=== PATIENT | female | born 1930 | race Caucasian/White ===

== ENCOUNTER 2017-06-09 20:09 | Inpatient (IN) | payer MEDICARE ==
[~2017-06-09] VITALS: Ht 160 cm; Wt 54.4 kg
[2017-06-09] MEDS ORDERED: LOSA1TAB35 PO (20:25)
[2017-06-09] MEDS ORDERED: DONE10TA11 PO (20:25)
[2017-06-09] MEDS ORDERED: QUET50TA PO (20:25)
[2017-06-09] MEDS ORDERED: ATOR40TA PO (20:25)
[2017-06-09] MEDS ORDERED: LACT10SO PO (20:25)
[2017-06-09] MEDS ORDERED: MEMA28CA PO (20:25)
[2017-06-09] MEDS ORDERED: ERGO500040 PO (20:25)
[2017-06-09] MEDS ORDERED: MELA3TAB PO (20:25)
[2017-06-09] MEDS ORDERED: CYAN10009 PO (20:25)
[2017-06-09] MEDS ORDERED: ASPI81TA31 PO (20:25)
[2017-06-09] MEDS ORDERED: QUET25TA PO (20:25)
[2017-06-09] MEDS ORDERED: ACET325C PO (20:25)
[2017-06-09] MEDS ORDERED: MAGN400T6 PO (20:25)
[2017-06-09] MEDS ORDERED: LEVO75TA7 PO ×2 (20:25)
[2017-06-09] MEDS ORDERED: DIVA250T4 PO (20:25)
[2017-06-09] MEDS ORDERED: LORAZEPAM 2 MG/1 ML VIAL IM ONE (20:30)
[2017-06-09] MEDS ORDERED: LORAZEPAM 2 MG/1 ML VIAL ONE (20:41)
[2017-06-09 20:56] LABS: BASOPHILS # (AUTO) 0.1 K/uL (0.0-8.0); BASOPHILS % (AUTO) 1.1 % (0.0-2.0); EOSINOPHILS # (AUTO) 0.1 K/uL (0.0-0.7); EOSINOPHILS % (AUTO) 1.5 % (0.0-7.0); HEMATOCRIT 37.9 % (37-47); HEMOGLOBIN 12.3 G/DL (12.0-16.0); LYMPHOCYTES # (AUTO) 1.6 K/UL (0.8-4.8); LYMPHOCYTES % (AUTO) 22.3 % (20.5-51.5); MEAN CORPUSCULAR HEMOGLOBIN 29.8 UUG (27.0-31.0); MEAN CORPUSCULAR HGB CONC 32 g/dL (32.0-37.0); MONOCYTES # (AUTO) 0.7 K/UL (0.1-1.30); MONOCYTES % (AUTO) 10.1 % (0.0-11.0); NEUTROPHILS # (AUTO) 4.8 K/UL (1.8-8.9); PLATELET COUNT (AUTO) 199 K/UL (150-450); RED BLOOD CELL COUNT(AUTO) 4.12 MIL/UL (4.2-5.4); WHITE BLOOD COUNT (AUTO) 7.3 K/UL (4.0-11.2)
[2017-06-09 20:59] LABS: CARBON DIOXIDE 26 mmol/L (21-32); CHLORIDE 100 mmol/L (98-107); CREATININE 2.2 mg/dL (0.6-1.3); GLUCOSE 103 mg/dL (74-106); POTASSIUM 3.2 mmol/L (3.5-5.1); UREA NITROGEN, BLOOD 45 mg/dL (7-18)
[2017-06-09 21:05] LABS: ETHANOL < 3 MG/DL (0-0)
[2017-06-09 21:11] LABS: ALANINE AMINOTRANSFERASE 18 U/L (14-59); ALKALINE PHOSPHATASE 92 U/L (50-136); ASPARTATE AMINOTRANSFERASE 23 U/L (15-37); BILIRUBIN,DIRECT 0.1 mg/dL (0.0-0.2); BILIRUBIN,TOTAL 0.3 mg/dL (0.2-1.0)
[2017-06-09 21:30] LABS: THYROID STIMULATING HORMONE 0.111 mIU/mL (0.358-3.740)
[2017-06-09] MEDS ORDERED: hydrALAZINE HCL 25 MG TABLET PO PRN (23:00)
[2017-06-09] MEDS ORDERED: ONDANSETRON 4 MG/2 ML VIAL IV PRN (23:00)
[2017-06-09] MEDS ORDERED: Medication Not On Formulary EA (Quetiapine Fumarate (Seroquel) 50 MG) PO SCH (23:00)
--- NOTE | 2017-06-09 23:30 | NUR ---
RECEIVED PATIENT VIA GURNEY FROM ER, WITH 1:1 SITTER PRESENT AT BEDSIDE. PATIENT IS ASLEEP AND VERY LETHARGIC. PATIENT WAS MEDICATED IN ER AND WAS IN 4 POINT RESTRAINTS IN ER PRIOR TO ADMISSION TO THE FLOOR. PATIENT IS HEAVILY SLEEPING. AROUSABLE BUT FALLS BACK ASLEEP. PLACED ON TELE ORDERED, SR 60-62. VSS. NO RESP. DISTRESS NOTED. PATIENT IS ON RA SATING 97%. HEPLOCK PLACED IN RIGHT AC #20 GAUGE. PATIENT REPOSITIONED TO SIDE FOR PRESSURE RELIEF. BED ALARM ON. CALL LIGHT IN REACH. ALL NEEDS ATTENDED. WILL CONTINUE TO MONITOR AND ASSESS.
--- NOTE | 2017-06-09 23:36 | NUR ---
Pt. admitted to TELE, under care of Dr. Sanchez and Dr. Monroe Belongs List completed
[2017-06-10 00:24] VITALS: BP 103/47
[2017-06-10] MEDS: POTASSIUM CHLORIDE 20 MEQ in IV 1/2NS 1000 ML 1,000 ML IV PRN ×2 (01:03→15:47)
[2017-06-10] MEDS ORDERED: Z GUARD REMEDY PASTE 57 GM TUBE TOP PRN (02:00)
[2017-06-10 04:30] VITALS: BP 121/47
--- NOTE | 2017-06-10 05:36 | NUR ---
PATIENT ASLEEP IN BED. SITTER AT BEDSIDE. VSS. ON TELE SB 57. NO RESP. DISTRESS NOTED. BED ALARM ON. CALL LIGHT IN REACH. ALL NEEDS ATTENDED. WILL CONTINUE TO MONITOR AND ASSESS.
[2017-06-10 06:53] LABS: ALANINE AMINOTRANSFERASE 19 U/L (14-59); ALKALINE PHOSPHATASE 81 U/L (50-136); ASPARTATE AMINOTRANSFERASE 22 U/L (15-37); BILIRUBIN,TOTAL 0.3 mg/dL (0.2-1.0); CARBON DIOXIDE 29 mmol/L (21-32); CHLORIDE 104 mmol/L (98-107); CREATININE 1.8 mg/dL (0.6-1.3); GLUCOSE 74 mg/dL (74-106); MAGNESIUM 2.2 mg/dL (1.8-2.4); PHOSPHOROUS 3.2 mg/dL (2.5-4.9); TOTAL PROTEIN, SERUM 6.5 g/dL (6.4-8.2); UREA NITROGEN, BLOOD 40 mg/dL (7-18); VALPROIC ACID 34 ug/mL (50-100)
[2017-06-10 06:57] LABS: POTASSIUM 2.7 mmol/L (3.5-5.1)
[2017-06-10] MEDS: PANTOPRAZOLE SODIUM 40 MG TABLET.DR PO SCH (07:00)
[2017-06-10 07:21] LABS: EOSINOPHILS # (AUTO) 0.2 K/uL (0.0-0.7); EOSINOPHILS % (AUTO) 4.2 % (0.0-7.0); HEMOGLOBIN 11.4 G/DL (12.0-16.0); LYMPHOCYTES # (AUTO) 1.3 K/UL (0.8-4.8); LYMPHOCYTES % (AUTO) 21.4 % (20.5-51.5); MEAN CORPUSCULAR HEMOGLOBIN 30.5 UUG (27.0-31.0); MEAN CORPUSCULAR HGB CONC 33 g/dL (32.0-37.0); MEAN CORPUSCULAR VOLUME 93.6 FL (81.0-99.0); MONOCYTES # (AUTO) 0.8 K/UL (0.1-1.30); MONOCYTES % (AUTO) 13.5 % (0.0-11.0); NEUTROPHILS # (AUTO) 3.6 K/UL (1.8-8.9); NEUTROPHILS % (AUTO) 60.9 % (38.5-71.5); PLATELET COUNT (AUTO) 150 K/UL (150-450); RED BLOOD CELL COUNT(AUTO) 3.73 MIL/UL (4.2-5.4); WHITE BLOOD COUNT (AUTO) 5.9 K/UL (4.0-11.2)
[2017-06-10 07:33] LABS: CHOLESTEROL 178 mg/dL (<200); HDL CHOLESTEROL 61 mg/dL (40-60); TRIGLYCERIDES 81 MG/DL (30-150)
[2017-06-10 07:41] VITALS: BP 150/71
[2017-06-10] MEDS ORDERED: ACETAMINOPHEN 325 MG TABLET PO PRN (07:45)
[2017-06-10] MEDS: POTASSIUM CHLORIDE 10 MEQ CAPSULE.SA PO ONE ×2 (08:30→09:23)
[2017-06-10] MEDS: DONEPEZIL 10 MG TABLET PO SCH (08:51)
[2017-06-10] MEDS: QUETIAPINE FUMARATE 25 MG TABLET PO SCH ×2 (08:51→16:38)
[2017-06-10] MEDS ORDERED: ASPIRIN 81 MG TAB.CHEW PO SCH (09:00)
[2017-06-10] MEDS: CYANOCOBALAMIN 1,000 MCG TABLET PO SCH (09:00)
[2017-06-10] MEDS: MAGNESIUM OXIDE 400 MG TABLET PO SCH (09:00)
[2017-06-10] MEDS: DIVALPROEX 250 MG TABLET.DR PO SCH ×2 (09:00→12:02)
[2017-06-10] MEDS: Z GUARD REMEDY PASTE 57 GM TUBE TOP SCH ×2 (09:20→21:43)
--- NOTE | 2017-06-10 09:34 | NUR ---
geodom im 3mg one time dose per dr. clements. Patient is agitated, confused, combative, screaming profanities.
--- NOTE | 2017-06-10 09:35 | NUR ---
Pt refuses all PO meds.
--- NOTE | 2017-06-10 09:42 | NUR ---
pt agreed to take medication crushed in apple sauce, when the nurse giving the medications -- pt spitted all of her meds to the nurse. Pt refused all medications.
[2017-06-10] MEDS ORDERED: ZIPRASIDONE MESYLATE 20 MG VIAL IM ONE (09:45)
[2017-06-10] MEDS: ASPIRIN 300 MG RECTAL SUPP RC SCH (11:14)
[2017-06-10] MEDS: POTASSIUM CHLORIDE 50 ML IV SCH ×2 (11:15→11:55)
--- NOTE | 2017-06-10 11:57 | NUR ---
PT REFUSED TO BE CATHETERIZED, REFUSES UA. WILL TRY AGAIN
[2017-06-10 12:00] VITALS: BP 154/64
--- NOTE | 2017-06-10 12:05 | NUR ---
WOUND CARE CONSULT: PT EXTREMELY COMBATIVE. ALL SKIN PROTECTION MEASURES DISCUSSED WITH NURSING STAFF. WILL SEE PRN. HDZ IN AGREEMENT WITH PLAN OF CARE. CURRENT WENCESLAO SCORE IS 14. SKIN INTACT.
--- NOTE | 2017-06-10 13:00 | NUR ---
Dr. Hung is here to see the pt, report is given. Dr assessed the pt
[2017-06-10] MEDS ORDERED: CLONIDINE-TTS 1 PATCH TD SCH (15:45)
[2017-06-10 16:05] VITALS: BP 172/62
[2017-06-10 16:17] LABS: *CREATININE,URINE 69.1 mg/dL (30-125)
[2017-06-10 16:31] LABS: *URINE TOTAL PROTEIN RANDOM 18.6 mg/dL (<150/24HR)
[2017-06-10 16:35] LABS: *BILIRUBIN,URIN NEGATIVE (NEGATIVE); *BLOOD, URINE 1+ (NEGATIVE); *CLARITY,URINE CLEAR (CLEAR); *COLOR,URINE YELLOW (YELLOW); *KETONES,URINE NEGATIVE (NEGATIVE); *PROTEIN,URINE NEGATIVE (NEGATIVE); *UROBILINOGEN,URINE 0.2 E.U./dl (NORMAL); LEUKOCYTE ESTERASE ,URINE 1+ (NEGATIVE); NITRITE, URINE NEGATIVE (NEGATIVE); UGLUCOSE NEGATIVE (NEGATIVE)
[2017-06-10 17:22] LABS: BACTERIA,URINE FEW /HPF (NONE SEEN); SQUAMOUS EPITHELIAL CELL,UR FEW /HPF (NONE SEEN)
[2017-06-10 17:23] LABS: MUCUS,URINE MODERATE /LPF (0-FEW)
--- NOTE | 2017-06-10 19:10 | NUR ---
Received patient in bed, appears sleeping, sitter at bedside. No s/s of pain/discomforts noted. Will continue to monitor.
--- NOTE | 2017-06-10 19:49 | NUR ---
PT IS LAYING IN BED COMFORTABLY. PT'S LEFT AT 1800. GAVE REPORT TO THE PT'S . PT'S STATES THAT HE WILL COME BACK IN AM. NO S/S OF RESPIRATORY DISTRESS NOTED. NO PAIN NOTED. ALL SAFETY NEEDS ARE MET. 1:1 SITTER FOR SAFETY. IV INTACT/PATENT.
[2017-06-10 20:00] VITALS: BP 157/58
[2017-06-10] MEDS ORDERED: DOCUSATE SODIUM 250 MG CAPSULE PO SCH (21:00)
[2017-06-10] MEDS: ATORVASTATIN 40 MG TABLET PO SCH (21:43)
[2017-06-10] MEDS: DOCUSATE SODIUM 100 MG CAPSULE PO SCH (21:43)
[2017-06-11] VITALS (7 sets, daily range): BP systolic 122–158; BP diastolic 48–94
[2017-06-11] MEDS: PANTOPRAZOLE SODIUM 40 MG TABLET.DR PO SCH (05:49)
[2017-06-11] MEDS: POTASSIUM CHLORIDE 20 MEQ in IV 1/2NS 1000 ML 1,000 ML IV PRN (05:51)
--- NOTE | 2017-06-11 05:57 | NUR ---
Slept well. No complaint presented all night. No agitation/restlessness presented. Non compliant with care at times. Refused AM med and lab draw today. Remain on 1:1 sitter status. Safety measures and fall precaution maintained. VS stable. No significant event reported. Continue current plan of care.
--- NOTE | 2017-06-11 08:30 | NUR ---
awake alert but very confused, trying to get out off bed, repositioned by sitter, tele SR, on room air, no distress noted, offered medications, at first refused but later states " I will take it" but spits it out when given, safety measures maintained
[2017-06-11] MEDS: CYANOCOBALAMIN 1,000 MCG TABLET PO SCH ×2 (09:00→11:08)
[2017-06-11] MEDS: QUETIAPINE FUMARATE 25 MG TABLET PO SCH ×3 (09:00→20:22)
[2017-06-11] MEDS: ASPIRIN 300 MG RECTAL SUPP RC SCH (09:00)
[2017-06-11] MEDS: Z GUARD REMEDY PASTE 57 GM TUBE TOP SCH ×2 (09:00→20:24)
[2017-06-11] MEDS: MAGNESIUM OXIDE 400 MG TABLET PO SCH ×2 (09:00→11:07)
[2017-06-11] MEDS: DONEPEZIL 10 MG TABLET PO SCH ×2 (09:00→11:06)
[2017-06-11] MEDS: VALPROATE SODIUM IV 250 MG in IV DEXTROSE 5% 100 ML IV SCH ×3 (09:24→17:59)
--- NOTE | 2017-06-11 09:30 | NUR ---
up in diana chair, confused talking to herself
[2017-06-11] MEDS ORDERED: LORAZEPAM 2 MG/1 ML VIAL IV PRN (09:45)
[2017-06-11 10:33] LABS: BASOPHILS % (AUTO) 0.3 % (0.0-2.0); EOSINOPHILS # (AUTO) 0.1 K/uL (0.0-0.7); EOSINOPHILS % (AUTO) 1.3 % (0.0-7.0); HEMATOCRIT 38.9 % (31.2-41.9); HEMOGLOBIN 13.2 g/dL (10.9-14.3); LYMPHOCYTES # (AUTO) 0.9 K/uL (20.0-40.0); LYMPHOCYTES % (AUTO) 9.4 % (20.5-51.5); MEAN CORPUSCULAR HEMOGLOBIN 31.8 uug (24.7-32.8); MEAN CORPUSCULAR HGB CONC 34 g/dL (32.3-35.6); MEAN CORPUSCULAR VOLUME 93.7 fL (75.5-95.3); MONOCYTES # (AUTO) 0.5 K/uL (2.0-10.0); MONOCYTES % (AUTO) 5.6 % (0.0-11.0); NEUTROPHILS % (AUTO) 83.4 % (38.5-71.5); PLATELET COUNT (AUTO) 168 K/uL (179-408); RED BLOOD CELL COUNT(AUTO) 4.15 MIL/uL (3.63-4.92); WHITE BLOOD COUNT (AUTO) 9.6 K/uL (3.8-11.8)
[2017-06-11 10:38] LABS: CHLORIDE 105 mmol/L (98-107); POTASSIUM 4.1 mmol/L (3.5-5.1)
[2017-06-11 10:48] LABS: ALANINE AMINOTRANSFERASE 20 U/L (14-59); ALKALINE PHOSPHATASE 91 U/L (50-136); ASPARTATE AMINOTRANSFERASE 26 U/L (15-37); BILIRUBIN,TOTAL 0.3 mg/dL (0.2-1.0); CARBON DIOXIDE 27 mmol/L (21-32); CREATINE KINASE, TOTAL 200 U/L (26-192); CREATININE 1.2 mg/dL (0.6-1.3); GLUCOSE 106 mg/dL (74-106); MAGNESIUM 1.6 mg/dL (1.8-2.4); PHOSPHOROUS 1.3 mg/dL (2.5-4.9); TOTAL PROTEIN, SERUM 7.1 g/dL (6.4-8.2); UREA NITROGEN, BLOOD 25 mg/dL (7-18)
--- NOTE | 2017-06-11 11:06 | NUR ---
still up in diana chair- here, calm and cooperative, took oral meds, sitter in the room
[2017-06-11] MEDS ORDERED: MAGNESIUM SULFATE/D5W 100 ML IV SCH (11:15)
[2017-06-11] MEDS: CEFTRIAXONE 1 G in IV DEXTROSE 5% 50 ML IV SCH (11:41)
[2017-06-11] MEDS: IV NS 1000 ML 1,000 ML IV PRN (12:28)
--- NOTE | 2017-06-11 12:45 | NUR ---
assisted back to bed-incontinent of urine- washed and kept clean and dry, bladder scan done- 613 ml obtained, herrera cath #16 inserted aseptically- tolerated well, clear yellow urine return obtained
[2017-06-11] MEDS ORDERED: POTASSIUM PHOSPHATE MM 7.5 MMOL in IV DEXTROSE 5% 100 ML IV ONE (13:00)
--- NOTE | 2017-06-11 18:15 | NUR ---
SON AT BEDSIDE, PT IN NO DISTRESS, ALL NEEDS ATTENDED AND MET, KEPT CLEAN AND DRY AT ALL TIMES, ALL NEEDS ATTENDED AND MET, ON MECHANICAL VENT WITH SAME SETTINGS WITH SAT AT 100% Addendum: 06/11/17 at 1818 by VISHNU DELGADO RN ERROR- WRONG ENTRY
--- NOTE | 2017-06-11 18:18 | NUR ---
SITTING IN DALLIN CHAIR, NO DISTRESS NOTED, STILL VERY CONFUSED, CALM AT THIS TIME, SITTER AT BEDSIDE, ALL NEEDS ATTENDED AND MET
[2017-06-11] MEDS: DOCUSATE SODIUM 100 MG CAPSULE PO SCH (20:22)
[2017-06-11] MEDS: ATORVASTATIN 40 MG TABLET PO SCH (20:22)
--- NOTE | 2017-06-11 23:15 | NUR ---
PATIENT WAS AGITATED, CONFUSED, VERBALLY ABUSIVE, PULLING IV AND TELE MONITOR OFF, UNABLE TO REDIRECT, REFUSED TO HAVE TELE MONITOR ATTACHED TO HER CHEST. ADMINISTERED ATIVAN. PT IS IN NO DISTRESS. 1:1 SITTER PROVIDED FOR SAFETY. WILL CONTINUE TO MONITOR.
[2017-06-12 00:15] VITALS: BP 101/51
[2017-06-12 04:00] VITALS: BP 119/55
[2017-06-12] MEDS: PANTOPRAZOLE SODIUM 40 MG TABLET.DR PO SCH ×2 (06:23→07:00)
--- NOTE | 2017-06-12 06:30 | NUR ---
PATIENT SLEPT WELL, IN NO ACUTE DISTRESS. SLEPT 7 HOURS. DUGGAN CATH INTACT, DRAINING CLEAR, YELLOW URINE WITH NO SEDIMENTS. PATIENT NO C/O OF URINARY DISCOMFORT. IVF RUNNING, NO INFILTRATION NOTED. ALL NEEDS MET, PT KEPT CLEAN/DRY, REPOSITIONED FOR COMFORT. SAFETY MEASURES IN PLACE, 1:1 SITTER PROVIDED, BED ALARM ON. WILL CONTINUE TO MONITOR.
--- NOTE | 2017-06-12 08:00 | NUR ---
sleeping but arouses easily, respirations wnl, fed for breakfast ate, fairly well, aspiration precautions observed, calm and cooperative, tele SR, sitter in the room, safety precautions observed
[2017-06-12] MEDS: ASPIRIN 300 MG RECTAL SUPP RC SCH (08:55)
[2017-06-12] MEDS: VALPROATE SODIUM IV 250 MG in IV DEXTROSE 5% 100 ML IV SCH ×3 (08:55→17:54)
[2017-06-12] MEDS: CYANOCOBALAMIN 1,000 MCG TABLET PO SCH (08:55)
[2017-06-12] MEDS: QUETIAPINE FUMARATE 25 MG TABLET PO SCH ×2 (08:55→20:32)
[2017-06-12] MEDS: DONEPEZIL 10 MG TABLET PO SCH (08:55)
[2017-06-12] MEDS: MAGNESIUM OXIDE 400 MG TABLET PO SCH (08:55)
[2017-06-12] MEDS: Z GUARD REMEDY PASTE 57 GM TUBE TOP SCH ×2 (08:56→21:50)
--- NOTE | 2017-06-12 09:30 | NUR ---
family here visiting
[2017-06-12] MEDS: CEFTRIAXONE 1 G in IV DEXTROSE 5% 50 ML IV SCH (10:32)
[2017-06-12 10:58] LABS: BASOPHILS # (AUTO) 0.1 K/uL (0.0-8.0); BASOPHILS % (AUTO) 0.8 % (0.0-2.0); EOSINOPHILS # (AUTO) 0.3 K/uL (0.0-0.7); EOSINOPHILS % (AUTO) 3.9 % (0.0-7.0); HEMATOCRIT 37.5 % (37-47); HEMOGLOBIN 12.4 G/DL (12.0-16.0); LYMPHOCYTES # (AUTO) 1.4 K/UL (0.8-4.8); LYMPHOCYTES % (AUTO) 19.4 % (20.5-51.5); MEAN CORPUSCULAR HEMOGLOBIN 30.9 UUG (27.0-31.0); MEAN CORPUSCULAR HGB CONC 33 g/dL (32.0-37.0); MEAN CORPUSCULAR VOLUME 93.9 FL (81.0-99.0); MONOCYTES # (AUTO) 0.4 K/UL (0.1-1.30); MONOCYTES % (AUTO) 5.7 % (0.0-11.0); NEUTROPHILS # (AUTO) 4.8 K/UL (1.8-8.9); NEUTROPHILS % (AUTO) 70.2 % (38.5-71.5); PLATELET COUNT (AUTO) 154 K/UL (150-450)
[2017-06-12 11:20] LABS: ALANINE AMINOTRANSFERASE 15 U/L (14-59); ALKALINE PHOSPHATASE 75 U/L (50-136); ASPARTATE AMINOTRANSFERASE 17 U/L (15-37); BILIRUBIN,TOTAL 0.2 mg/dL (0.2-1.0); CARBON DIOXIDE 31 mmol/L (21-32); CHLORIDE 109 mmol/L (98-107); CREATININE 1.2 mg/dL (0.6-1.3); GLUCOSE 97 mg/dL (74-106); MAGNESIUM 1.9 mg/dL (1.8-2.4); PHOSPHOROUS 1.9 mg/dL (2.5-4.9); POTASSIUM 3.8 mmol/L (3.5-5.1); TOTAL PROTEIN, SERUM 6.4 g/dL (6.4-8.2); UREA NITROGEN, BLOOD 16 mg/dL (7-18)
[2017-06-12 11:21] LABS: THYROID STIMULATING HORMONE 0.354 mIU/mL (0.358-3.740)
[2017-06-12 12:00] VITALS: BP 132/61
--- NOTE | 2017-06-12 12:00 | NUR ---
fed with lunch, cooperative but gets agitated and mumbling to herself
--- NOTE | 2017-06-12 15:00 | NUR ---
seen by Dr Sanchez and spoke to family
[2017-06-12] MEDS: IV NS 1000 ML 1,000 ML IV PRN (15:17)
[2017-06-12] MEDS: POTASSIUM PHOSPHATE MM 5 MMOL in IV DEXTROSE 5% 100 ML IV SCH ×2 (15:47→20:32)
[2017-06-12 16:11] VITALS: BP 138/62
--- NOTE | 2017-06-12 16:17 | NUR ---
downgraded to [facility]
--- NOTE | 2017-06-12 18:14 | NUR ---
resting and calm at this time, ate fairly well, all needs attended and met, sitter in the room
--- NOTE | 2017-06-12 19:30 | NUR ---
RECEIVED SHIFT REPORT FROM PREVIOUS SHIFT NURSE. PATIENT IS CONFUSED, VERBALIZES FOUL LANGUAGE, AND APPEARS UNCOOPERATIVE. 1:1 SITTER AT BEDSIDE. PATIENT ON A 14-DAY HOLD. PATIENT IS IN STABLE CONDITION, NO S/S OF DISTRESS. BED IN LOCKED/LOW POSITION WITH SIDE RAILS UP X3 AND BED ALARM ON. SAFETY AND COMFORT WILL BE IMPLEMENTED THROUGHOUT SHIFT.
[2017-06-12 20:08] VITALS: BP 131/59
[2017-06-12] MEDS: DOCUSATE SODIUM 100 MG CAPSULE PO SCH (20:32)
[2017-06-12] MEDS: ATORVASTATIN 40 MG TABLET PO SCH (20:32)
[2017-06-13 06:37] VITALS: BP 123/54
[2017-06-13] MEDS ORDERED: LEVOTHYROXINE SODIUM 75 MCG TABLET PO SCH (07:00)
[2017-06-13] MEDS: PANTOPRAZOLE SODIUM 40 MG TABLET.DR PO SCH (07:08)
[2017-06-13] MEDS: Z GUARD REMEDY PASTE 57 GM TUBE TOP SCH (09:00)
[2017-06-13] MEDS ORDERED: ASPIRIN 81 MG TAB.CHEW PO SCH (09:00)
[2017-06-13 09:07] LABS: A/G RATIO 0.9 (0.7-1.7); ALBUMIN 3.1 g/dL (2.9-4.4); ALPHA-1-GLOBULIN 0.3 g/dL (0.0-0.4); ALPHA-2-GLOBULIN 0.7 g/dL (0.4-1.0); BETA GLOBULIN 0.9 g/dL (0.7-1.3); GAMMA GLOBULIN 1.4 g/dL (0.4-1.8); GLOBULIN, TOTAL 3.3 g/dL (2.2-3.9); M-SPIKE Not Observed g/dL (Not Observed)
[2017-06-13] MEDS: VALPROATE SODIUM IV 250 MG in IV DEXTROSE 5% 100 ML IV SCH ×3 (10:24→17:27)
[2017-06-13] MEDS: MAGNESIUM OXIDE 400 MG TABLET PO SCH (10:24)
[2017-06-13] MEDS: DONEPEZIL 10 MG TABLET PO SCH (10:24)
[2017-06-13] MEDS: QUETIAPINE FUMARATE 25 MG TABLET PO SCH (10:25)
[2017-06-13] MEDS: CYANOCOBALAMIN 1,000 MCG TABLET PO SCH (10:25)
[2017-06-13] MEDS: CEFTRIAXONE 1 G in IV DEXTROSE 5% 50 ML IV SCH (10:42)
[2017-06-13 11:38] VITALS: BP 127/56
[2017-06-13] MEDS ORDERED: QUETIAPINE FUMARATE 25 MG TABLET PO SCH ×2 (13:00→17:00)
[2017-06-13 15:32] VITALS: BP 129/52
[2017-06-13] MEDS: IV NS 1000 ML 1,000 ML IV PRN (16:13)
[2017-06-13] MEDS ORDERED: ACET325T53 PO (19:37)
[2017-06-13] MEDS ORDERED: DOCU100C36 PO (19:37)
[2017-06-13] MEDS ORDERED: MENT71OI TOP (19:37)
[2017-06-13] MEDS ORDERED: PANT40TA2 PO (19:37)
[2017-06-13] MEDS ORDERED: LEVO75TA7 PO (19:37)
[2017-06-13] MEDS ORDERED: QUET25TA PO ×2 (19:37)
[2017-06-13] MEDS ORDERED: CLON1PAT TD (19:37)
[2017-06-13] MEDS ORDERED: HYDR25TA86 PO (19:37)
[2017-06-13] MEDS: ATORVASTATIN 40 MG TABLET PO SCH (20:27)
[2017-06-13] MEDS: DOCUSATE SODIUM 100 MG CAPSULE PO SCH (20:27)
[2017-06-15] MEDS ORDERED: ERGOCALCIFEROL 50,000 UNIT CAPSULE PO SCH (09:00)
== END 2017-06-13 21:08 | DRG 280 ==
LOC: ER 20:09 → GPSOV 23:20 → TELE 23:27 → MED 06-12 16:14
PROVIDERS: ADMIT Psychiatry & Neurology Psychosomatic Medicine; ATTEND Internal Medicine
DX: I21.A1 Myocardial infarction type 2 (principal); I50.33 Acute on chronic diastolic (congestive) heart failure; N17.0 Acute kidney failure with tubular necrosis; G93.40 Encephalopathy, unspecified; E44.0 Moderate protein-calorie malnutrition; D69.6 Thrombocytopenia, unspecified; E83.39 Other disorders of phosphorus metabolism; E83.42 Hypomagnesemia; F03.91 Unspecified dementia, unspecified severity, with behavioral disturbance; I13.0 Hypertensive heart and chronic kidney disease with heart failure and stage 1 through stage 4 chronic kidney disease, or unspecified chronic kidney disease; M62.82 Rhabdomyolysis; N39.0 Urinary tract infection, site not specified; F23 Brief psychotic disorder; D64.9 Anemia, unspecified; E03.9 Hypothyroidism, unspecified; E78.5 Hyperlipidemia, unspecified; E87.6 Hypokalemia; N18.9 Chronic kidney disease, unspecified; I25.10 Atherosclerotic heart disease of native coronary artery without angina pectoris; F25.9 Schizoaffective disorder, unspecified; F29 Unspecified psychosis not due to a substance or known physiological condition; J84.10 Pulmonary fibrosis, unspecified; M41.84 Other forms of scoliosis, thoracic region; I07.1 Rheumatic tricuspid insufficiency; B96.20 Unspecified Escherichia coli [E. coli] as the cause of diseases classified elsewhere; Z68.21 Body mass index [BMI] 21.0-21.9, adult; F39 Unspecified mood [affective] disorder; Z79.899 Other long term (current) drug therapy; Z87.891 Personal history of nicotine dependence
CPT/HCPCS: 36415; 70030-TC; 71010; 76770; 80164; 83735; 83970; 84100; 84132; 84155; 84156; 84165; 84300; 84443; 85025; 87077; 87086; 93005; 93307; 97116; 97530; A4663; G0480; J0696; J2060; J3475; J3480; J3486; J3490; J7030; J7050; J7060

== ENCOUNTER 2017-06-13 21:05 | Inpatient (IN) | payer MEDICARE, OTHER ==
[~2017-06-13] VITALS: Ht 157.5 cm; Wt 60.8 kg
[~2017-06-13 21:05] MED LIST: ACET325C PO; ACET325T53 PO; ASPI81TA31 PO; ATOR40TA PO; CLON1PAT TD; CYAN10009 PO; DIVA250T4 PO; DOCU100C36 PO; DONE10TA11 PO; ERGO500040 PO; HYDR25TA86 PO; LACT10SO PO; LEVO75TA7 PO; LOSA1TAB35 PO; MAGN400T6 PO; MELA3TAB PO; MEMA28CA PO; MENT71OI TOP; PANT40TA2 PO; QUET25TA PO; QUET50TA PO
--- NOTE | 2017-06-13 21:50 | NUR ---
PATIENT IS CONVERTED FROM MED-SURG TO GEROPSYCH OVERFLOW. ADMISSIONS PAPERWORK/DOCUMENTS COMPLETED AND IN PHYSICAL CHART. PATIENT'S IV REMOVED, PICTURES TAKEN. DUGGAN CATHETER LEFT IN PLACE.
[2017-06-13] MEDS ORDERED: ACETAMINOPHEN 325 MG TABLET PO PRN ×2 (22:00→22:30)
[2017-06-13] MEDS ORDERED: MAG HYDROX/AL HYDROX/SIMETH 30 ML LIQUID UDC PO PRN (22:00)
[2017-06-13] MEDS ORDERED: MAGNESIUM HYDROXIDE 30 ML LIQUID UDC PO PRN (22:00)
[2017-06-13] MEDS ORDERED: hydrALAZINE HCL 25 MG TABLET PO PRN (22:30)
[2017-06-13] MEDS ORDERED: Z GUARD REMEDY PASTE 57 GM TUBE TOP PRN (22:30)
[2017-06-13 23:33] VITALS: BP 131/76
[2017-06-14] MEDS ORDERED: CLONIDINE-TTS 1 PATCH TD ONE (02:39)
[2017-06-14 05:05] VITALS: BP 136/79
[2017-06-14] MEDS: CLONIDINE-TTS 1 PATCH TD SCH (05:55)
--- NOTE | 2017-06-14 06:28 | NUR ---
PATIENT SLEPT COMFORTABLY THROUGHOUT THE NIGHT. 1:1 SITTER PRESENT THROUGHOUT SHIFT AT BEDSIDE. PATIENT IS SAFE. CONTINUES TO BE CONFUSED. A/O X1. STABLE CONDITION. VSS. NO S/S OF DISTRESS. BED IN LOCKED/LOW POSITION, SIDE RAILS UP X3, CALL LIGHT WITHIN REACH, BED ALARM ON, SAFETY HAZARDOUS MATERIALS REMOVED FROM ROOM OF PATIENT. SAFETY AND COMFORT WAS PROVIDED THROUGHOUT SHIFT.
[2017-06-14] MEDS: PANTOPRAZOLE SODIUM 40 MG TABLET.DR PO SCH (06:41)
[2017-06-14] MEDS ORDERED: PANTOPRAZOLE SODIUM 40 MG TABLET.DR PO ONE (06:54)
[2017-06-14] MEDS ORDERED: LEVOTHYROXINE SODIUM 150 MCG TABLET ONE (06:56)
[2017-06-14] MEDS: CYANOCOBALAMIN 1,000 MCG TABLET PO SCH (08:24)
[2017-06-14] MEDS: ASPIRIN 81 MG TAB.CHEW PO SCH (08:24)
[2017-06-14] MEDS: MAGNESIUM OXIDE 400 MG TABLET PO SCH (08:25)
[2017-06-14] MEDS: LEVOTHYROXINE SODIUM 75 MCG TABLET PO SCH (08:25)
[2017-06-14] MEDS ORDERED: DIVALPROEX 250 MG TABLET.DR PO SCH (09:00)
[2017-06-14] MEDS ORDERED: QUETIAPINE FUMARATE 25 MG TABLET PO SCH ×2 (09:00→13:00)
[2017-06-14] MEDS: LORAZEPAM 0.5 MG TABLET PO PRN (11:05)
--- NOTE | 2017-06-14 11:35 | NUR ---
Initial DC Plan: Patient arrived from [facility] [[[address] [place] [address]; [phone]]. Patient and her stated that they would like her to return there. SW will follow up with [facility] to confirm patient will be accepted back at the facility. SW will follow up with MD, patient, and patient's family to discuss appropriate discharge plans. SW will form a safe and proper discharge.
[2017-06-14 12:00] VITALS: BP 144/68
[2017-06-14] MEDS: DONEPEZIL 10 MG TABLET PO SCH (12:13)
[2017-06-14] MEDS: HALOPERIDOL 1 MG TABLET PO SCH ×2 (12:41→16:00)
[2017-06-14] MEDS: BENZTROPINE MESYLATE 0.5 MG TABLET PO SCH ×2 (12:41→16:00)
[2017-06-14] MEDS: VALPROIC ACID 250 MG/5 ML LIQUID UDC PO SCH ×2 (12:41→16:00)
--- NOTE | 2017-06-14 17:59 | NUR ---
PT TAKEN DOWN TO MHU, REMAINED VERBALLY ABUSIVE THROUGHOUT SHIFT, AND WOULD ONLY TAKE MEDICATIONS WHILE WAS PRESENT. ALL BELONGINGS ACCOUNTED FOR AND SENT WITH PT.
[2017-06-14 20:12] VITALS: BP 146/67
[2017-06-14] MEDS: ATORVASTATIN 40 MG TABLET PO SCH (20:38)
[2017-06-14] MEDS: DOCUSATE SODIUM 100 MG CAPSULE PO SCH (21:00)
[2017-06-14] MEDS: TEMAZEPAM 7.5 MG CAPSULE PO PRN (22:42)
--- NOTE | 2017-06-14 23:55 | NUR ---
RECEIVED PATIENT UP IN A DALLIN CHAIR. PER MD, PATIENT REMAINS WITH A FOLLY CATH DUE TO URINARY RETENCION. PT WAS NOTED DELUSIONAL, FLIGHT OF IDEAS. PATIENT REFUSED COLACE 200MG PO QHS. AT APPROX 2235, PATIENT WAS NOTED RESTLESS IN HER BED. TEMAZEPAM 7.5MG PO PRN FOR INSOMNIA WAS GIVEN PER NURSE ASSESSMENT, AT APPROX 2242. PT NOTED ASLEEP IN HER BED AT APPROX 2345. WILL CONTINUE TO MONITOR.
[2017-06-15] MEDS: LEVOTHYROXINE SODIUM 75 MCG TABLET PO SCH (07:00)
[2017-06-15] MEDS: PANTOPRAZOLE SODIUM 40 MG TABLET.DR PO SCH (07:00)
[2017-06-15] MEDS: ASPIRIN 81 MG TAB.CHEW PO SCH (09:00)
[2017-06-15] MEDS: DONEPEZIL 10 MG TABLET PO SCH (09:00)
[2017-06-15] MEDS: HALOPERIDOL 1 MG TABLET PO SCH ×3 (09:00→17:41)
[2017-06-15] MEDS: BENZTROPINE MESYLATE 0.5 MG TABLET PO SCH ×3 (09:00→17:40)
[2017-06-15] MEDS: VALPROIC ACID 250 MG/5 ML LIQUID UDC PO SCH ×3 (09:00→17:41)
[2017-06-15] MEDS: ERGOCALCIFEROL 50,000 UNIT CAPSULE PO SCH (09:00)
[2017-06-15] MEDS: CYANOCOBALAMIN 1,000 MCG TABLET PO SCH (09:00)
[2017-06-15] MEDS: MAGNESIUM OXIDE 400 MG TABLET PO SCH (09:00)
--- NOTE | 2017-06-15 11:00 | NUR ---
Received patient sitting in gerichair in the hallways, restless, verbally abusive with staff, confused and disoriented, with herrera catheter due to urinary retention. Patient with skin tear on both arms. Need lots of prompting with medications, offered x 3, but finally took it for the third time. Seen by Md. Will continue to monitor for safety and needs. Remains on 1:1 sitter.
[2017-06-15 15:48] VITALS: BP 128/50
[2017-06-15] MEDS: DOCUSATE SODIUM 100 MG CAPSULE PO SCH (20:16)
[2017-06-15] MEDS: LORAZEPAM 0.5 MG TABLET PO PRN (20:16)
[2017-06-15] MEDS: ATORVASTATIN 40 MG TABLET PO SCH (20:16)
[2017-06-15 20:28] VITALS: BP 142/65
--- NOTE | 2017-06-15 20:59 | NUR ---
recieved patient up in her diana chair. A/O x 1 at this time. she presents with labile bx. (she is calm and pleasant at one time,then next time is angry, anxious and uncooperative). Ativan 0.5mg PO PRN was given for agitation at 2015. patient continue with with a folley cath per MD. she is compliant with [facility] medications at this time.
[2017-06-16] MEDS: LEVOTHYROXINE SODIUM 75 MCG TABLET PO SCH (06:57)
[2017-06-16] MEDS: PANTOPRAZOLE SODIUM 40 MG TABLET.DR PO SCH (06:57)
[2017-06-16 07:30] VITALS: BP 102/51
[2017-06-16 07:40] LABS: BASOPHILS % (AUTO) 0.3 % (0.0-2.0); EOSINOPHILS # (AUTO) 0.3 K/uL (0.0-0.7); EOSINOPHILS % (AUTO) 3.4 % (0.0-7.0); HEMATOCRIT 36.4 % (37-47); HEMOGLOBIN 12.3 G/DL (12.0-16.0); LYMPHOCYTES # (AUTO) 2.4 K/UL (0.8-4.8); LYMPHOCYTES % (AUTO) 30.3 % (20.5-51.5); MEAN CORPUSCULAR HEMOGLOBIN 31.1 UUG (27.0-31.0); MEAN CORPUSCULAR HGB CONC 34 g/dL (32.0-37.0); MEAN CORPUSCULAR VOLUME 92.5 FL (81.0-99.0); MONOCYTES # (AUTO) 0.8 K/UL (0.1-1.30); MONOCYTES % (AUTO) 9.6 % (0.0-11.0); NEUTROPHILS # (AUTO) 4.4 K/UL (1.8-8.9); NEUTROPHILS % (AUTO) 56.4 % (38.5-71.5); PLATELET COUNT (AUTO) 198 K/UL (150-450); RED BLOOD CELL COUNT(AUTO) 3.94 MIL/UL (4.2-5.4); WHITE BLOOD COUNT (AUTO) 7.9 K/UL (4.0-11.2)
[2017-06-16 07:53] LABS: ALANINE AMINOTRANSFERASE 19 U/L (14-59); ALKALINE PHOSPHATASE 66 U/L (50-136); ASPARTATE AMINOTRANSFERASE 19 U/L (15-37); BILIRUBIN,TOTAL 0.2 mg/dL (0.2-1.0); CARBON DIOXIDE 29 mmol/L (21-32); CHLORIDE 106 mmol/L (98-107); CREATININE 1.4 mg/dL (0.6-1.3); GLUCOSE 77 mg/dL (74-106); MAGNESIUM 1.8 mg/dL (1.8-2.4); PHOSPHOROUS 2.8 mg/dL (2.5-4.9); TOTAL PROTEIN, SERUM 6.4 g/dL (6.4-8.2); UREA NITROGEN, BLOOD 34 mg/dL (7-18); VALPROIC ACID 72 ug/mL (50-100)
[2017-06-16] MEDS: MAGNESIUM OXIDE 400 MG TABLET PO SCH (09:29)
[2017-06-16] MEDS: DONEPEZIL 10 MG TABLET PO SCH (09:29)
[2017-06-16] MEDS: CYANOCOBALAMIN 1,000 MCG TABLET PO SCH (09:30)
[2017-06-16] MEDS: VALPROIC ACID 250 MG/5 ML LIQUID UDC PO SCH ×3 (09:30→17:58)
[2017-06-16] MEDS: HALOPERIDOL 1 MG TABLET PO SCH ×3 (09:30→17:59)
[2017-06-16] MEDS: BENZTROPINE MESYLATE 0.5 MG TABLET PO SCH ×3 (09:30→17:58)
[2017-06-16] MEDS: ASPIRIN 81 MG TAB.CHEW PO SCH (09:30)
[2017-06-16 15:00] VITALS: BP 128/60
--- NOTE | 2017-06-16 16:30 | NUR ---
PT WAS NOTED LAYING IN BED AND HER DUGGAN BEING OUT. PT CANNOT EXPLAIN WHAT HAPPENED, PT IS CONFUSED. NO BLEEDING NOTED IN VAGINAL AREA. JULY WILLIS NP WAS NOTIFIED AND ORDER TO OBSERVE AND DO BLADDER SCAN IN 6 HR WAS OBTAINED (2229). DUGGAN IS TO BE REINSERTED IN RESIDUAL IS GREATER THAN 250CC.
[2017-06-16 20:46] VITALS: BP 110/64
[2017-06-16] MEDS: ATORVASTATIN 40 MG TABLET PO SCH (21:04)
[2017-06-16] MEDS: DOCUSATE SODIUM 100 MG CAPSULE PO SCH (21:08)
--- NOTE | 2017-06-16 22:00 | NUR ---
Patient is ambulatory with assist to the bathroom times 2. Post void bladder scan 118ml. Tolerated well
[2017-06-17] MEDS: PANTOPRAZOLE SODIUM 40 MG TABLET.DR PO SCH (06:08)
[2017-06-17] MEDS: LEVOTHYROXINE SODIUM 75 MCG TABLET PO SCH (06:08)
[2017-06-17 07:30] VITALS: BP 124/50
[2017-06-17] MEDS: BENZTROPINE MESYLATE 0.5 MG TABLET PO SCH ×3 (09:30→17:37)
[2017-06-17] MEDS: CYANOCOBALAMIN 1,000 MCG TABLET PO SCH (09:32)
[2017-06-17] MEDS: VALPROIC ACID 250 MG/5 ML LIQUID UDC PO SCH ×3 (09:32→17:37)
[2017-06-17] MEDS: MAGNESIUM OXIDE 400 MG TABLET PO SCH (09:32)
[2017-06-17] MEDS: HALOPERIDOL 1 MG TABLET PO SCH ×3 (09:32→17:37)
[2017-06-17] MEDS: DONEPEZIL 10 MG TABLET PO SCH (09:32)
[2017-06-17] MEDS: ASPIRIN 81 MG TAB.CHEW PO SCH (09:32)
[2017-06-17 15:21] VITALS: BP 104/53
[2017-06-17] MEDS: DOCUSATE SODIUM 100 MG CAPSULE PO SCH (20:04)
[2017-06-17] MEDS: ATORVASTATIN 40 MG TABLET PO SCH (20:04)
[2017-06-17 20:06] VITALS: BP 109/56
[2017-06-18] MEDS: LEVOTHYROXINE SODIUM 75 MCG TABLET PO SCH (06:08)
[2017-06-18] MEDS: PANTOPRAZOLE SODIUM 40 MG TABLET.DR PO SCH (06:09)
--- NOTE | 2017-06-18 06:51 | NUR ---
GPS: REMAIN CALM AND COOPERATIVE WITH STAFF.SHOWERED THIS MORNING. PATIENT SLEPT COMFORTABLY THROUGHOUT THE NIGHT 7 HRS. PATIENT IS SAFE. CONTINUES TO BE CONFUSED. A/O X1. STABLE CONDITION. VSS. NO S/S OF DISTRESS. BED IN LOCKED/LOW POSITION, SIDE RAILS UP X3, CALL LIGHT WITHIN REACH, BED ALARM ON. SAFETY AND COMFORT WAS PROVIDED THROUGHOUT SHIFT. CONTINUE PLAN OF CARE.
[2017-06-18 07:30] VITALS: BP 120/60
[2017-06-18 08:18] LABS: BASOPHILS % (AUTO) 0.7 % (0.0-2.0); EOSINOPHILS # (AUTO) 0.2 K/uL (0.0-0.7); EOSINOPHILS % (AUTO) 2.3 % (0.0-7.0); HEMATOCRIT 34.7 % (37-47); HEMOGLOBIN 11.6 G/DL (12.0-16.0); LYMPHOCYTES # (AUTO) 1.8 K/UL (0.8-4.8); LYMPHOCYTES % (AUTO) 26.8 % (20.5-51.5); MEAN CORPUSCULAR HEMOGLOBIN 30.8 UUG (27.0-31.0); MEAN CORPUSCULAR HGB CONC 33 g/dL (32.0-37.0); MEAN CORPUSCULAR VOLUME 92.6 FL (81.0-99.0); MONOCYTES # (AUTO) 0.9 K/UL (0.1-1.30); MONOCYTES % (AUTO) 12.9 % (0.0-11.0); NEUTROPHILS # (AUTO) 3.7 K/UL (1.8-8.9); NEUTROPHILS % (AUTO) 57.3 % (38.5-71.5); PLATELET COUNT (AUTO) 207 K/UL (150-450); RED BLOOD CELL COUNT(AUTO) 3.75 MIL/UL (4.2-5.4); WHITE BLOOD COUNT (AUTO) 6.6 K/UL (4.0-11.2)
[2017-06-18 08:25] LABS: ALANINE AMINOTRANSFERASE 21 U/L (14-59); ALKALINE PHOSPHATASE 59 U/L (50-136); ASPARTATE AMINOTRANSFERASE 28 U/L (15-37); BILIRUBIN,TOTAL 0.3 mg/dL (0.2-1.0); CARBON DIOXIDE 31 mmol/L (21-32); CHLORIDE 105 mmol/L (98-107); CREATININE 1.5 mg/dL (0.6-1.3); GLUCOSE 85 mg/dL (74-106); MAGNESIUM 1.8 mg/dL (1.8-2.4); PHOSPHOROUS 2.8 mg/dL (2.5-4.9); POTASSIUM 4.4 mmol/L (3.5-5.1); TOTAL PROTEIN, SERUM 6.5 g/dL (6.4-8.2); UREA NITROGEN, BLOOD 27 mg/dL (7-18)
[2017-06-18] MEDS: VALPROIC ACID 250 MG/5 ML LIQUID UDC PO SCH ×3 (08:26→16:35)
[2017-06-18] MEDS: CYANOCOBALAMIN 1,000 MCG TABLET PO SCH (08:26)
[2017-06-18] MEDS: ASPIRIN 81 MG TAB.CHEW PO SCH (08:26)
[2017-06-18] MEDS: MAGNESIUM OXIDE 400 MG TABLET PO SCH (08:26)
[2017-06-18] MEDS: HALOPERIDOL 1 MG TABLET PO SCH ×3 (08:26→16:35)
[2017-06-18] MEDS: BENZTROPINE MESYLATE 0.5 MG TABLET PO SCH ×3 (08:26→16:35)
[2017-06-18] MEDS: DONEPEZIL 10 MG TABLET PO SCH (08:26)
[2017-06-18 16:43] VITALS: BP 128/68
[2017-06-18] MEDS: ATORVASTATIN 40 MG TABLET PO SCH (20:10)
[2017-06-18 20:31] VITALS: BP 120/61
[2017-06-18] MEDS: TEMAZEPAM 7.5 MG CAPSULE PO PRN (22:16)
--- NOTE | 2017-06-18 22:17 | NUR ---
GPS: PATIENT UNABLE TO SLEEP. RESTORIL 7.5 MG PO GIVEN.
[2017-06-19] MEDS: PANTOPRAZOLE SODIUM 40 MG TABLET.DR PO SCH (06:03)
[2017-06-19] MEDS: LEVOTHYROXINE SODIUM 75 MCG TABLET PO SCH (06:03)
--- NOTE | 2017-06-19 06:16 | NUR ---
GPS: REMAIN CALM AND COOPERATIVE. SLEPT 7 HRS THROUGH THE NIGHT AFTER RESTORIL 7.5 MG GIVEN. ASSISTED TO USE BATHROOM AND BED BATH, NEEDED.CONTINUE. PATIENT VOIDING FREELY IN TOILET. NO AGITATION NOTED. CONTINUE MONITOR FOR SAFETY.
[2017-06-19 07:30] VITALS: BP 106/55
[2017-06-19] MEDS: ASPIRIN 81 MG TAB.CHEW PO SCH (08:41)
[2017-06-19] MEDS: CYANOCOBALAMIN 1,000 MCG TABLET PO SCH (08:42)
[2017-06-19] MEDS: MAGNESIUM OXIDE 400 MG TABLET PO SCH (08:42)
[2017-06-19] MEDS: BENZTROPINE MESYLATE 0.5 MG TABLET PO SCH ×3 (08:42→16:35)
[2017-06-19] MEDS: HALOPERIDOL 1 MG TABLET PO SCH ×3 (08:42→16:35)
[2017-06-19] MEDS: VALPROIC ACID 250 MG/5 ML LIQUID UDC PO SCH ×3 (08:42→16:35)
[2017-06-19] MEDS: DONEPEZIL 10 MG TABLET PO SCH (08:42)
[2017-06-19] MEDS: LORAZEPAM 0.5 MG TABLET PO PRN (13:19)
[2017-06-19] MEDS ORDERED: Z GUARD REMEDY PASTE 57 GM TUBE TOP PRN (14:30)
[2017-06-19 16:39] VITALS: BP 131/59
[2017-06-19 20:15] VITALS: BP 105/50
[2017-06-19] MEDS: ATORVASTATIN 40 MG TABLET PO SCH (20:17)
[2017-06-19] MEDS: Z GUARD REMEDY PASTE 57 GM TUBE TOP SCH (20:18)
--- NOTE | 2017-06-19 20:38 | NUR ---
PATIENT RECEIVED AWAKE INTERACTING WITH PEERS AND STAFF. PATIENT CALM AND COOPERATIVE. PATIENT CONFUSED, FORGETFUL ABLE TO REDIRECT. NO AGGRESSIVE OR COMBATIVE BEHAVIORS NOTED WILL CONTINUE TO MONITOR. PATIENT COMPLAINT WITH MEDICATION.
[2017-06-19] MEDS: TEMAZEPAM 7.5 MG CAPSULE PO PRN (21:12)
[2017-06-20] MEDS: PANTOPRAZOLE SODIUM 40 MG TABLET.DR PO SCH (06:09)
[2017-06-20] MEDS: LEVOTHYROXINE SODIUM 75 MCG TABLET PO SCH (06:10)
[2017-06-20 07:30] VITALS: BP 104/50
[2017-06-20] MEDS: Z GUARD REMEDY PASTE 57 GM TUBE TOP SCH ×2 (08:16→20:23)
[2017-06-20] MEDS: VALPROIC ACID 250 MG/5 ML LIQUID UDC PO SCH ×3 (08:16→17:10)
[2017-06-20] MEDS: DONEPEZIL 10 MG TABLET PO SCH (08:16)
[2017-06-20] MEDS: CYANOCOBALAMIN 1,000 MCG TABLET PO SCH (08:16)
[2017-06-20] MEDS: MAGNESIUM OXIDE 400 MG TABLET PO SCH (08:16)
[2017-06-20] MEDS: BENZTROPINE MESYLATE 0.5 MG TABLET PO SCH ×3 (08:16→17:10)
[2017-06-20] MEDS: HALOPERIDOL 1 MG TABLET PO SCH ×3 (08:16→17:10)
[2017-06-20] MEDS: ASPIRIN 81 MG TAB.CHEW PO SCH (08:16)
[2017-06-20 16:48] VITALS: BP 118/51
[2017-06-20] MEDS: ATORVASTATIN 40 MG TABLET PO SCH (20:20)
[2017-06-20 20:28] VITALS: BP 130/57
[2017-06-20] MEDS: TEMAZEPAM 7.5 MG CAPSULE PO PRN (22:02)
[2017-06-20] MEDS: CLONIDINE-TTS 1 PATCH TD SCH (22:08)
--- NOTE | 2017-06-21 01:49 | NUR ---
PATIENT'S ALARM, FOUND PATIENT ON THE FLOOR IN A SITTING POSITION. ANNELIE ROOMMATE SCREAMING STATING PATIENT LYING ON TOP OF HER AND THEN FELL ON FLOOR IN A SITTING POSITION. BODY ASSESSMENT RENDERED NO BRUISING, SKIN TEAR, OR INJURY NOTED. PATIENT STATED " I WAS JUST GETTING UP AND FELL ON THE FLOOR IT'S NOT A BIG DEAL." PATIENT DENIES ANY PAIN AT THIS TIME. CALLED EPIC SPOKE WITH MARC BLEDSOE NP NO NEW ORDERS. PATIENT IN DALLIN CHAIR SECURED. VITAL SIGNS TAKEN BP 125/64, HR 76 RESPIRATIONS 18 OXYGEN 95% ON ROOM AIR. WILL CONTINUE TO MONITOR PATIENT FOR ANY CHANGES OF CONDITION. DOMINATRIX, KAREN SANTA NOTIFIED OF FALL. WILL CONTACT (COREY) IN THE MORNING.
[2017-06-21] MEDS: PANTOPRAZOLE SODIUM 40 MG TABLET.DR PO SCH (06:10)
[2017-06-21] MEDS: LEVOTHYROXINE SODIUM 75 MCG TABLET PO SCH (06:10)
--- NOTE | 2017-06-21 06:42 | NUR ---
spoke to son Ferny Banks [phone] regarding fall to Catia Banks (mother) at 0130. No issues or concerns noted.
[2017-06-21] MEDS: LORAZEPAM 0.5 MG TABLET PO PRN (07:18)
[2017-06-21 07:48] VITALS: BP 130/59
[2017-06-21] MEDS: Z GUARD REMEDY PASTE 57 GM TUBE TOP SCH ×2 (08:15→21:55)
[2017-06-21] MEDS: VALPROIC ACID 250 MG/5 ML LIQUID UDC PO SCH ×3 (08:15→17:43)
[2017-06-21] MEDS: BENZTROPINE MESYLATE 0.5 MG TABLET PO SCH ×3 (08:15→17:43)
[2017-06-21] MEDS: CYANOCOBALAMIN 1,000 MCG TABLET PO SCH (08:15)
[2017-06-21] MEDS: ASPIRIN 81 MG TAB.CHEW PO SCH (08:15)
[2017-06-21] MEDS: MAGNESIUM OXIDE 400 MG TABLET PO SCH (08:15)
[2017-06-21] MEDS: DONEPEZIL 10 MG TABLET PO SCH (08:15)
[2017-06-21] MEDS: HALOPERIDOL 1 MG TABLET PO SCH ×3 (08:15→17:43)
[2017-06-21 16:42] VITALS: BP 109/50
[2017-06-21 19:50] VITALS: BP 124/53
[2017-06-21] MEDS: ATORVASTATIN 40 MG TABLET PO SCH (20:12)
[2017-06-22] MEDS: LEVOTHYROXINE SODIUM 75 MCG TABLET PO SCH (07:23)
[2017-06-22] MEDS: PANTOPRAZOLE SODIUM 40 MG TABLET.DR PO SCH (07:23)
[2017-06-22 07:30] VITALS: BP 114/51
[2017-06-22] MEDS: CYANOCOBALAMIN 1,000 MCG TABLET PO SCH (08:22)
[2017-06-22] MEDS: HALOPERIDOL 1 MG TABLET PO SCH ×3 (08:22→16:24)
[2017-06-22] MEDS: BENZTROPINE MESYLATE 0.5 MG TABLET PO SCH ×3 (08:22→16:24)
[2017-06-22] MEDS: VALPROIC ACID 250 MG/5 ML LIQUID UDC PO SCH ×3 (08:22→16:24)
[2017-06-22] MEDS: ASPIRIN 81 MG TAB.CHEW PO SCH (08:22)
[2017-06-22] MEDS: Z GUARD REMEDY PASTE 57 GM TUBE TOP SCH ×2 (08:22→20:16)
[2017-06-22] MEDS: ERGOCALCIFEROL 50,000 UNIT CAPSULE PO SCH (08:22)
[2017-06-22] MEDS: DONEPEZIL 10 MG TABLET PO SCH (08:22)
[2017-06-22] MEDS: MAGNESIUM OXIDE 400 MG TABLET PO SCH (08:22)
[2017-06-22 15:50] VITALS: BP 118/55
[2017-06-22] MEDS: ATORVASTATIN 40 MG TABLET PO SCH (20:17)
[2017-06-22 20:35] VITALS: BP 109/58
[2017-06-23] MEDS: LEVOTHYROXINE SODIUM 75 MCG TABLET PO SCH (06:10)
[2017-06-23] MEDS: PANTOPRAZOLE SODIUM 40 MG TABLET.DR PO SCH (06:10)
--- NOTE | 2017-06-23 06:26 | NUR ---
PATIENT AWAKE, SITTING IN DALLIN-CHAIR IN HALLWAY. PATIENT TOOK AM SHOWER. SLEPT WELL THROUGHOUT THE NIGHT. COOPERATIVE WITH AM MEDS. WILL CONTINUE TO MONITOR AND OBSERVE CLOSELY. ALL NEEDS ATTENDED.
[2017-06-23 07:30] VITALS: BP 131/58
[2017-06-23 07:30] LABS: BASOPHILS % (AUTO) 0.4 % (0.0-2.0); EOSINOPHILS # (AUTO) 0.1 K/uL (0.0-0.7); EOSINOPHILS % (AUTO) 1.4 % (0.0-7.0); HEMATOCRIT 31.9 % (31.2-41.9); HEMOGLOBIN 10.7 g/dL (10.9-14.3); LYMPHOCYTES # (AUTO) 1.8 K/uL (20.0-40.0); LYMPHOCYTES % (AUTO) 20.7 % (20.5-51.5); MEAN CORPUSCULAR HEMOGLOBIN 31.4 uug (24.7-32.8); MEAN CORPUSCULAR HGB CONC 34 g/dL (32.3-35.6); MEAN CORPUSCULAR VOLUME 93.5 fL (75.5-95.3); NEUTROPHILS # (AUTO) 5.6 K/uL (1.8-8.9); NEUTROPHILS % (AUTO) 65.5 % (38.5-71.5); PLATELET COUNT (AUTO) 201 K/uL (179-408); RED BLOOD CELL COUNT(AUTO) 3.41 MIL/uL (3.63-4.92)
[2017-06-23 07:43] LABS: ALANINE AMINOTRANSFERASE 25 U/L (14-59); ALKALINE PHOSPHATASE 53 U/L (50-136); ASPARTATE AMINOTRANSFERASE 25 U/L (15-37); BILIRUBIN,TOTAL 0.2 mg/dL (0.2-1.0); CARBON DIOXIDE 33 mmol/L (21-32); CHLORIDE 107 mmol/L (98-107); CREATININE 1.3 mg/dL (0.6-1.3); GLUCOSE 79 mg/dL (74-106); POTASSIUM 4.5 mmol/L (3.5-5.1); TOTAL PROTEIN, SERUM 6.1 g/dL (6.4-8.2); UREA NITROGEN, BLOOD 24 mg/dL (7-18); VALPROIC ACID 64 ug/mL (50-100)
[2017-06-23 07:46] LABS: WHITE BLOOD COUNT (AUTO) 8.6 K/uL (3.8-11.8)
--- NOTE | 2017-06-23 08:13 | NUR ---
DC Note: Patient will be discharged to [facility] [[address] [place] [address]; ] via ambulance at 2pm. STAN confirmed discharge plans with Etta at [facility]. Patient's Eren [[phone]] is aware and agreeable to discharge plans. STAN left a voicemail with discharge plans for patient's daughter Maryjo [[phone]]. Patient will follow up with Dr. Morales Chris (Adult Education Teacher). STAN provided referrals for psychiatrists including Dr. James [[phone]], Dr. Stock [[phone]], and Dr. Weldon [[phone]].
[2017-06-23] MEDS: BENZTROPINE MESYLATE 0.5 MG TABLET PO SCH ×2 (09:07→13:17)
[2017-06-23] MEDS: MAGNESIUM OXIDE 400 MG TABLET PO SCH (09:07)
[2017-06-23] MEDS: CYANOCOBALAMIN 1,000 MCG TABLET PO SCH (09:08)
[2017-06-23] MEDS: HALOPERIDOL 1 MG TABLET PO SCH ×2 (09:08→13:17)
[2017-06-23] MEDS: ASPIRIN 81 MG TAB.CHEW PO SCH (09:08)
[2017-06-23] MEDS: DONEPEZIL 10 MG TABLET PO SCH (09:08)
[2017-06-23] MEDS: VALPROIC ACID 250 MG/5 ML LIQUID UDC PO SCH ×2 (09:08→13:17)
[2017-06-23] MEDS: Z GUARD REMEDY PASTE 57 GM TUBE TOP SCH (09:59)
--- NOTE | 2017-06-23 10:30 | NUR ---
1000 Patient will be discharged today to [facility] via ambulance..
--- NOTE | 2017-06-23 11:28 | NUR ---
PSYCH RX: CALLED IN PSYCH RX (HALDOL, COGENTIN, AND VALPROIC ACID) TO [facility] ([phone]) SPOKE WITH CYNDEE THE PHARMACIST.
--- NOTE | 2017-06-23 14:00 | NUR ---
1340 Patient discharged to [facility] Via ambulance stable condition. Denies Suicidal ideation/ denies homicidal thoughts.
== END 2017-06-23 11:40 | DRG 885 ==
LOC: GPSOV 21:05 → GPS 06-14 17:52
PROVIDERS: ADMIT Psychiatry & Neurology Psychosomatic Medicine; ATTEND Internal Medicine
DX: F23 Brief psychotic disorder (principal); N18.9 Chronic kidney disease, unspecified; N17.0 Acute kidney failure with tubular necrosis; I21.A1 Myocardial infarction type 2; G93.40 Encephalopathy, unspecified; E44.0 Moderate protein-calorie malnutrition; M41.9 Scoliosis, unspecified; E83.51 Hypocalcemia; I50.33 Acute on chronic diastolic (congestive) heart failure; I13.0 Hypertensive heart and chronic kidney disease with heart failure and stage 1 through stage 4 chronic kidney disease, or unspecified chronic kidney disease; N39.0 Urinary tract infection, site not specified; J84.10 Pulmonary fibrosis, unspecified; E03.9 Hypothyroidism, unspecified; F31.9 Bipolar disorder, unspecified; I25.10 Atherosclerotic heart disease of native coronary artery without angina pectoris; Z68.24 Body mass index [BMI] 24.0-24.9, adult; D64.9 Anemia, unspecified; E78.5 Hyperlipidemia, unspecified; E87.6 Hypokalemia; Z91.19 Patient's noncompliance with other medical treatment and regimen; Z87.891 Personal history of nicotine dependence; Z63.8 Other specified problems related to primary support group
CPT/HCPCS: 36415; 80164; 83735; 84100; 85025; 93005; 97112; 97116; 97530; A4663

== ENCOUNTER 2017-08-23 21:12 | Inpatient (IN) | payer MEDICARE, OTHER ==
[~2017-08-23] VITALS: Ht 160 cm; Wt 54.9 kg
[~2017-08-23 21:12] MED LIST changes: -ACET325C PO; -LACT10SO PO; -LOSA1TAB35 PO; -MELA3TAB PO; -MEMA28CA PO; -QUET50TA PO
[2017-08-23] MEDS ORDERED: MELA3TAB PO (21:20)
[2017-08-23] MEDS ORDERED: LEVO75TA7 PO (21:20)
[2017-08-23] MEDS ORDERED: LORA0.5T PO (21:20)
[2017-08-23 21:54] LABS: BASOPHILS # (AUTO) 0.1 K/uL (0.0-8.0); BASOPHILS % (AUTO) 1.1 % (0.0-2.0); EOSINOPHILS # (AUTO) 0.1 K/uL (0.0-0.7); HEMATOCRIT 30.6 % (31.2-41.9); HEMOGLOBIN 10.5 g/dL (10.9-14.3); LYMPHOCYTES # (AUTO) 1.5 K/uL (20.0-40.0); LYMPHOCYTES % (AUTO) 17.6 % (20.5-51.5); MEAN CORPUSCULAR HEMOGLOBIN 33.8 uug (24.7-32.8); MEAN CORPUSCULAR HGB CONC 34 g/dL (32.3-35.6); MEAN CORPUSCULAR VOLUME 98.9 fL (75.5-95.3); MONOCYTES # (AUTO) 0.9 K/uL (2.0-10.0); MONOCYTES % (AUTO) 10.8 % (0.0-11.0); NEUTROPHILS # (AUTO) 5.9 K/uL (1.8-8.9); NEUTROPHILS % (AUTO) 69.5 % (38.5-71.5); PLATELET COUNT (AUTO) 246 K/uL (179-408); WHITE BLOOD COUNT (AUTO) 8.5 K/uL (3.8-11.8)
[2017-08-23 22:04] LABS: ALANINE AMINOTRANSFERASE 35 U/L (14-59); ALKALINE PHOSPHATASE 83 U/L (50-136); ASPARTATE AMINOTRANSFERASE 24 U/L (15-37); BILIRUBIN,DIRECT 0.1 mg/dL (0.0-0.2); BILIRUBIN,TOTAL 0.4 mg/dL (0.2-1.0); CARBON DIOXIDE 29 mmol/L (21-32); CHLORIDE 102 mmol/L (98-107); CREATININE 1.4 mg/dL (0.6-1.3); GLUCOSE 103 mg/dL (74-106); POTASSIUM 3.4 mmol/L (3.5-5.1); TOTAL PROTEIN, SERUM 7.5 g/dL (6.4-8.2); UREA NITROGEN, BLOOD 27 mg/dL (7-18)
[2017-08-23 22:05] LABS: ACETAMINOPHEN < 2.0 ug/mL (10-30)
[2017-08-23 22:11] LABS: *BILIRUBIN,URIN NEGATIVE (NEGATIVE); *BLOOD, URINE 1+ (NEGATIVE); *CLARITY,URINE CLEAR (CLEAR); *COLOR,URINE YELLOW (YELLOW); *KETONES,URINE NEGATIVE (NEGATIVE); *PROTEIN,URINE 2+ (NEGATIVE); *UROBILINOGEN,URINE 0.2 E.U./dl (NORMAL); LEUKOCYTE ESTERASE ,URINE NEGATIVE (NEGATIVE); NITRITE, URINE NEGATIVE (NEGATIVE); UGLUCOSE NEGATIVE (NEGATIVE)
[2017-08-23 22:12] LABS: THYROID STIMULATING HORMONE 36.657 mIU/mL (0.358-3.740)
[2017-08-23 22:18] LABS: BACTERIA,URINE FEW /HPF (NONE SEEN); SQUAMOUS EPITHELIAL CELL,UR FEW /HPF (NONE SEEN); WBC,URINE 0-3 /HPF (0-3)
[2017-08-23 22:20] LABS: ETHANOL < 3 MG/DL (0-0)
[2017-08-23 22:22] LABS: *AMPHETAMINE, URINE NEGATIVE (NEGATIVE); *BARBITURATE, URINE NEGATIVE (NEGATIVE); *CANNABINOID, URINE NEGATIVE (NEGATIVE); *COCCAINE, URINE NEGATIVE (NEGATIVE); *OPIATE, URINE NEGATIVE (NEGATIVE); *PHENCYCLIDINE SCREEN,URINE NEGATIVE (NEGATIVE)
--- NOTE | 2017-08-23 22:40 | NUR ---
Pt. admitted to GPS, under care of Dr. Monroe Belongs List completed
--- NOTE | 2017-08-23 23:00 | NUR ---
received to care, from the emergency room, on a 72 hour hold for danger to others, a transfer from [facility] in [place]. according to the information provided, she has been striking out at peers and staff, including biting and kicking. she had recently changed her doctor, and all her psychotropic meds were discontinued. arrival on the unit, she appeared confused. attempted to punch staff when evaluated. curently up in diana chair.
[2017-08-23 23:10] VITALS: BP 173/67
[2017-08-23] MEDS: METOPROLOL TARTRATE 25 MG TABLET PO SCH (23:30)
[2017-08-23 23:55] VITALS: BP 173/67
[2017-08-24] MEDS ORDERED: ACETAMINOPHEN 325 MG TABLET PO PRN
[2017-08-24] MEDS ORDERED: MAGNESIUM HYDROXIDE 30 ML LIQUID UDC PO PRN
[2017-08-24] MEDS ORDERED: MAG HYDROX/AL HYDROX/SIMETH 30 ML LIQUID UDC PO PRN
[2017-08-24] MEDS ORDERED: CLONIDINE TTS 2 PATCH TD SCH ×2 (00:30→07:07)
--- NOTE | 2017-08-24 00:30 | NUR ---
pt refused metoprolol, ordered for bedtime. b/p was 172/67 on admission. MD was paged, and clonodine patch was placed, per md orders.
[2017-08-24] MEDS ORDERED: CLONIDINE TTS 2 PATCH TD ONE (01:18)
--- NOTE | 2017-08-24 03:27 | NUR ---
has been asleep, intermittently, in the chair. pt remains combative, and resistive with care. 3 staff members, plus security were required to perform a physical assessment/body check, and diaper change. pt remained aggressive, attempting to bite, and punch staff, when engaged. pt is currently up in diana chair. appears to be asleep. will continue to monitor closely.
[2017-08-24] MEDS: LEVOTHYROXINE SODIUM 75 MCG TABLET PO SCH ×2 (07:00→10:02)
[2017-08-24 08:00] VITALS: BP 143/86
[2017-08-24] MEDS ORDERED: LEVOTHYROXINE SODIUM 75 MCG TABLET PO SCH (09:00)
[2017-08-24] MEDS: METOPROLOL TARTRATE 25 MG TABLET PO SCH ×2 (09:57→20:06)
--- NOTE | 2017-08-24 11:56 | NUR ---
Called for Cardiology consult per Dr. Monroe requested.left massage in he's office.
[2017-08-24] MEDS: BENZTROPINE MESYLATE 0.5 MG TABLET PO SCH ×2 (12:55→20:05)
[2017-08-24] MEDS: DIVALPROEX SPRINKLE 125 MG CAP.SPRINK PO SCH ×2 (12:55→20:05)
[2017-08-24] MEDS: risperiDONE 0.25 MG TABLET PO SCH ×2 (12:55→20:05)
[2017-08-24 16:00] VITALS: BP 124/76
[2017-08-24 16:11] LABS: BASOPHILS # (AUTO) 0.1 K/uL (0.0-8.0); BASOPHILS % (AUTO) 0.9 % (0.0-2.0); EOSINOPHILS # (AUTO) 0.1 K/uL (0.0-0.7); HEMATOCRIT 30.7 % (31.2-41.9); HEMOGLOBIN 10.3 g/dL (10.9-14.3); LYMPHOCYTES # (AUTO) 1.4 K/uL (20.0-40.0); LYMPHOCYTES % (AUTO) 19.3 % (20.5-51.5); MEAN CORPUSCULAR HEMOGLOBIN 33.5 uug (24.7-32.8); MEAN CORPUSCULAR HGB CONC 34 g/dL (32.3-35.6); MEAN CORPUSCULAR VOLUME 99.4 fL (75.5-95.3); MONOCYTES # (AUTO) 0.9 K/uL (2.0-10.0); NEUTROPHILS # (AUTO) 4.6 K/uL (1.8-8.9); NEUTROPHILS % (AUTO) 65.8 % (38.5-71.5); PLATELET COUNT (AUTO) 252 K/uL (179-408); RED BLOOD CELL COUNT(AUTO) 3.09 MIL/uL (3.63-4.92)
[2017-08-24 16:53] LABS: ALANINE AMINOTRANSFERASE 30 U/L (14-59); ALKALINE PHOSPHATASE 85 U/L (50-136); ASPARTATE AMINOTRANSFERASE 20 U/L (15-37); BILIRUBIN,TOTAL 0.3 mg/dL (0.2-1.0); CARBON DIOXIDE 30 mmol/L (21-32); CHLORIDE 104 mmol/L (98-107); CHOLESTEROL 204 mg/dL (<200); CREATININE 1.4 mg/dL (0.6-1.3); GLUCOSE 120 mg/dL (74-106); HDL CHOLESTEROL 78 mg/dL (40-60); MAGNESIUM 1.8 mg/dL (1.8-2.4); PHOSPHOROUS 3.3 mg/dL (2.5-4.9); POTASSIUM 4.1 mmol/L (3.5-5.1); TOTAL PROTEIN, SERUM 7.1 g/dL (6.4-8.2); TRIGLYCERIDES 89 MG/DL (30-150); UREA NITROGEN, BLOOD 22 mg/dL (7-18)
[2017-08-24] MEDS: MELATONIN 3 MG TABLET PO SCH (20:08)
[2017-08-24 20:39] VITALS: BP 137/67
[2017-08-24] MEDS ORDERED: ATORVASTATIN 10 MG TABLET PO SCH (21:00)
[2017-08-24] MEDS: TEMAZEPAM 7.5 MG CAPSULE PO PRN (22:01)
--- NOTE | 2017-08-24 22:30 | NUR ---
received to care, up in diana chair, appearing confused, but directable. compliant with medications and saff direction. she was assisted to bed earlier, but immediately tried to climb over the rail. gait remains unsteady, so she was placed back in the diana chair. PRN restoril was given at 2200. as of 2229 she remains awake, and restless. will continue to monitor closely.
--- NOTE | 2017-08-24 23:45 | NUR ---
appears to be asleep. kept at nurses station, for safety monitoring. no distress noted.
[2017-08-25] MEDS: LEVOTHYROXINE SODIUM 75 MCG TABLET PO SCH (07:20)
[2017-08-25 07:30] VITALS: BP 169/74
[2017-08-25] MEDS: ASPIRIN EC 81 MG TABLET.DR PO SCH (08:53)
[2017-08-25] MEDS: BENZTROPINE MESYLATE 0.5 MG TABLET PO SCH ×3 (08:53→20:16)
[2017-08-25] MEDS: DIVALPROEX SPRINKLE 125 MG CAP.SPRINK PO SCH ×2 (08:53→20:15)
[2017-08-25] MEDS: risperiDONE 0.25 MG TABLET PO SCH ×3 (08:53→20:26)
[2017-08-25] MEDS: METOPROLOL TARTRATE 25 MG TABLET PO SCH ×2 (08:54→20:17)
[2017-08-25 15:00] VITALS: BP 119/63
--- NOTE | 2017-08-25 15:05 | NUR ---
PATIENT SEEN AND EXAMINED BY PASCUAL PAPER COATING SUPERVISOR WITH NEW ORDERS AND NOTED
[2017-08-25] MEDS ORDERED: hydrALAZINE HCL 25 MG TABLET PO PRN (15:15)
--- NOTE | 2017-08-25 15:15 | NUR ---
Initial DC Plan: Patient currently resides at [facility] [[address] [place] [address]; [phone]]. SW will follow up with [facility] to confirm patient can return upon discharge. SW will follow up with MD, patient, and patient's son Ferny [[phone]] to discuss most appropriate discharge plans. SW will form a safe and proper discharge.
--- NOTE | 2017-08-25 16:02 | NUR ---
ATTEMPTS TO CHANGE PATIENT SHE IS VERY UNCOOPERATIVE FIGHTING KICKING AND BITING VERY DIFFICULT TO CHANGE HER DIAPER PLACED INTO BED CHANGED AND BACK TO THE CHAIR.MADE COMFORTABLE
[2017-08-25 20:00] VITALS: BP 143/50
[2017-08-25] MEDS: ATORVASTATIN 20 MG TABLET PO SCH (20:16)
[2017-08-25] MEDS: MELATONIN 3 MG TABLET PO SCH (20:17)
--- NOTE | 2017-08-25 22:00 | NUR ---
received to care, up in diana chair, appearing confused, but directable. compliant with medications and staff direction, including diaper change. as of 2199, she appears to be asleep, in bed. no distress noted. will continue to monitor closely.
[2017-08-26] MEDS: LEVOTHYROXINE SODIUM 88 MCG TABLET PO SCH ×2 (06:43→09:14)
[2017-08-26 07:30] VITALS: BP 124/58
[2017-08-26] MEDS ORDERED: DIVALPROEX SPRINKLE 125 MG CAP.SPRINK PO SCH (09:00)
[2017-08-26] MEDS: risperiDONE 0.25 MG TABLET PO SCH ×3 (09:14→20:56)
[2017-08-26] MEDS: BENZTROPINE MESYLATE 0.5 MG TABLET PO SCH ×3 (09:14→20:56)
[2017-08-26] MEDS: METOPROLOL TARTRATE 25 MG TABLET PO SCH ×2 (09:15→20:50)
[2017-08-26] MEDS: ASPIRIN EC 81 MG TABLET.DR PO SCH (09:15)
[2017-08-26 16:00] VITALS: BP 119/61
[2017-08-26] MEDS: DIVALPROEX SPRINKLE 125 MG CAP.SPRINK PO SCH ×2 (17:40→20:51)
[2017-08-26] MEDS: ATORVASTATIN 20 MG TABLET PO SCH (20:50)
[2017-08-26] MEDS: MELATONIN 3 MG TABLET PO SCH (20:51)
[2017-08-26 21:01] VITALS: BP 143/82
[2017-08-27] MEDS: LEVOTHYROXINE SODIUM 88 MCG TABLET PO SCH (06:02)
--- NOTE | 2017-08-27 06:27 | NUR ---
GPS: REMAIN CALM AND COOPERATIVE WITH MEDICATIONS.PATIENT UNCOOPERATIVE WITH CARE. SLEPT 7 HRS THROUGH THE NIGHT.
[2017-08-27 07:30] VITALS: BP 144/63
[2017-08-27 08:03] LABS: EOSINOPHILS # (AUTO) 0.2 K/uL (0.0-0.7); HEMOGLOBIN 11.7 g/dL (10.9-14.3); LYMPHOCYTES # (AUTO) 1.7 K/uL (20.0-40.0); MONOCYTES # (AUTO) 0.7 K/uL (2.0-10.0); NEUTROPHILS # (AUTO) 4.4 K/uL (1.8-8.9)
[2017-08-27 08:32] LABS: BASOPHILS % (AUTO) 0.7 % (0.0-2.0); EOSINOPHILS % (AUTO) 3.1 % (0.0-7.0); LYMPHOCYTES % (AUTO) 23.5 % (20.5-51.5); MEAN CORPUSCULAR HEMOGLOBIN 33.7 uug (24.7-32.8); MEAN CORPUSCULAR HGB CONC 34 g/dL (32.3-35.6); MEAN CORPUSCULAR VOLUME 99.8 fL (75.5-95.3); MONOCYTES % (AUTO) 9.9 % (0.0-11.0); NEUTROPHILS % (AUTO) 62.8 % (38.5-71.5); PLATELET COUNT (AUTO) 271 K/uL (179-408); RED BLOOD CELL COUNT(AUTO) 3.48 MIL/uL (3.63-4.92); WHITE BLOOD COUNT (AUTO) 7.1 K/uL (3.8-11.8)
[2017-08-27 08:33] LABS: HEMATOCRIT 34.7 % (31.2-41.9)
[2017-08-27 08:34] LABS: ALANINE AMINOTRANSFERASE 28 U/L (14-59); ALKALINE PHOSPHATASE 88 U/L (50-136); ASPARTATE AMINOTRANSFERASE 23 U/L (15-37); BILIRUBIN,TOTAL 0.5 mg/dL (0.2-1.0); CARBON DIOXIDE 28 mmol/L (21-32); CHLORIDE 106 mmol/L (98-107); CREATININE 1.3 mg/dL (0.6-1.3); GLUCOSE 86 mg/dL (74-106); MAGNESIUM 1.9 mg/dL (1.8-2.4); PHOSPHOROUS 3.7 mg/dL (2.5-4.9); POTASSIUM 4.5 mmol/L (3.5-5.1); TOTAL PROTEIN, SERUM 7.6 g/dL (6.4-8.2); UREA NITROGEN, BLOOD 31 mg/dL (7-18)
[2017-08-27] MEDS: risperiDONE 0.25 MG TABLET PO SCH ×3 (08:55→20:16)
[2017-08-27] MEDS: BENZTROPINE MESYLATE 0.5 MG TABLET PO SCH ×3 (08:55→20:16)
[2017-08-27] MEDS: DIVALPROEX SPRINKLE 125 MG CAP.SPRINK PO SCH ×4 (08:55→20:15)
[2017-08-27] MEDS: LORAZEPAM 0.5 MG TABLET PO PRN (08:55)
[2017-08-27] MEDS: ASPIRIN EC 81 MG TABLET.DR PO SCH (08:55)
[2017-08-27] MEDS: METOPROLOL TARTRATE 25 MG TABLET PO SCH ×2 (09:00→20:15)
[2017-08-27 16:55] VITALS: BP 158/59
[2017-08-27] MEDS: ATORVASTATIN 20 MG TABLET PO SCH (20:15)
[2017-08-27] MEDS: MELATONIN 3 MG TABLET PO SCH (20:19)
[2017-08-27 20:31] VITALS: BP 139/74
[2017-08-28] MEDS: LEVOTHYROXINE SODIUM 88 MCG TABLET PO SCH (06:27)
[2017-08-28 07:30] VITALS: BP 157/62
[2017-08-28] MEDS: LORAZEPAM 0.5 MG TABLET PO PRN (07:42)
[2017-08-28] MEDS: risperiDONE 0.25 MG TABLET PO SCH ×2 (08:24→12:51)
[2017-08-28] MEDS: METOPROLOL TARTRATE 25 MG TABLET PO SCH ×2 (08:24→20:17)
[2017-08-28] MEDS: ASPIRIN EC 81 MG TABLET.DR PO SCH (08:24)
[2017-08-28] MEDS: DIVALPROEX SPRINKLE 125 MG CAP.SPRINK PO SCH ×4 (08:24→20:16)
[2017-08-28] MEDS: BENZTROPINE MESYLATE 0.5 MG TABLET PO SCH ×3 (08:49→20:15)
--- NOTE | 2017-08-28 15:23 | NUR ---
GPS: Nursing Notes: Destructive Behavior to Others: Patient is awake and responding to her name, impaired judgment, disoriented, confused, resistant with care, combative, restless when trying to help her change her wet diaper, striking out, scratching staff, kicking at staff, needs a lot of prompting to be compliant with her medications, poor anger management, total care, assisted with feeding, poor impulse control, redirected and reoriented during shift, but unable to follow directions at this time, unable to formulate a plan for self care, continue with treatment plan.
[2017-08-28 16:28] VITALS: BP 160/48
[2017-08-28 20:00] VITALS: BP 153/67
[2017-08-28] MEDS ORDERED: risperiDONE 0.25 MG TABLET PO SCH (20:00)
[2017-08-28] MEDS: risperiDONE 0.5 MG TABLET PO SCH (20:15)
[2017-08-28] MEDS: ATORVASTATIN 20 MG TABLET PO SCH (20:15)
--- NOTE | 2017-08-28 21:00 | NUR ---
RECEIVED PATIENT SITTING UP IN A DALLIN CHAIR NEAR THE NURSING STATION. SHE WAS NOTED A/O X 1. CALM AND COOPERATIVE AT THIS TIME. MEDICATION COMPLAINT. QHS GIVEN CRUSHED WITH APPLE SAUCE. CONFUSED, DISORIENTED, DISORGANIZED. HOWEVER, NO AGGRESSIVE AND COMBATIVE BX WAS NOTED AT THIS TIME. SHE IS INCONTINENT OF BOWEL AND BLADDER. SAFETY WAS EMPHASIS. WILL CONTINUE TO MONITOR.
[2017-08-28] MEDS: MELATONIN 3 MG TABLET PO SCH (21:01)
[2017-08-29] MEDS: TEMAZEPAM 7.5 MG CAPSULE PO PRN (01:30)
--- NOTE | 2017-08-29 01:39 | NUR ---
PATIENT NOTED IN HER BED, RESTLESS, TALKING, RESISTANCE TO CARE. RESTORIL 7.G MG PO PRN WAS GIVEN FOR INSOMNIA. WILL CONTINUE TO MONITOR.
[2017-08-29] MEDS: LEVOTHYROXINE SODIUM 88 MCG TABLET PO SCH (06:41)
[2017-08-29 07:30] VITALS: BP 157/59
--- NOTE | 2017-08-29 07:31 | NUR ---
PATIENT SLEPT FOR APPROX 8.30HRS THROUGH THE NIGHT. SHE CONTINUE CONFUSED, DISORIENTED, RESISTING TO CARE AND ADLs. HOWEVER, SHE IS MEDICATION COMPLIANT AT THIS TIME.
[2017-08-29] MEDS: LORAZEPAM 0.5 MG TABLET PO PRN (08:06)
[2017-08-29] MEDS: ASPIRIN EC 81 MG TABLET.DR PO SCH (08:11)
[2017-08-29] MEDS: DIVALPROEX SPRINKLE 125 MG CAP.SPRINK PO SCH ×4 (08:12→20:18)
[2017-08-29] MEDS: BENZTROPINE MESYLATE 0.5 MG TABLET PO SCH ×3 (08:12→20:18)
[2017-08-29] MEDS: risperiDONE 0.5 MG TABLET PO SCH ×3 (08:12→17:02)
[2017-08-29] MEDS: METOPROLOL TARTRATE 25 MG TABLET PO SCH ×2 (08:50→20:21)
[2017-08-29] MEDS ORDERED: MIRALAX 17 GM POWD.PACK PO ONE (10:30)
[2017-08-29] MEDS: DOCUSATE SODIUM 100 MG CAPSULE PO SCH ×2 (10:41→20:19)
[2017-08-29] MEDS: AMLODIPINE 5 MG TABLET PO SCH (10:41)
--- NOTE | 2017-08-29 15:40 | NUR ---
XRAY to left hand came back with recommendation for CT scan. Called Santana Nunez NP and received order for left hand CT without contrast. Family is with pt at this time.
--- NOTE | 2017-08-29 17:05 | NUR ---
Pt taken to have CT scan performed with heat treat technician and unit POUND ATTENDANT to accompany, on diana-chair. Unable to perform scan due to pt highly agitated, restless, striking at staff, very combative and uncooperative. Unable to comply with requirements for CT scan to left hand, at this time.
[2017-08-29 17:14] VITALS: BP 163/75
--- NOTE | 2017-08-29 17:26 | NUR ---
GPS: Nursing Notes: Thought Disorder: Patient is awake and responding to her name, impaired judgment, confused, disoriented, resistant with nursing care, restless when staff is helping her change her wet diaper, poor anger management, resistant with nursing care, internally preoccupied, striking out to staff, uncooperative with CT scan of the hand, disorganized, unable to formulate a plan for self care, continue with treatment plan.
[2017-08-29] MEDS: ATORVASTATIN 20 MG TABLET PO SCH (20:17)
[2017-08-29] MEDS: MELATONIN 3 MG TABLET PO SCH (20:21)
[2017-08-29 20:27] VITALS: BP 131/61
[2017-08-30] MEDS: LEVOTHYROXINE SODIUM 88 MCG TABLET PO SCH (06:06)
[2017-08-30 07:30] VITALS: BP 144/75
[2017-08-30] MEDS: ASPIRIN EC 81 MG TABLET.DR PO SCH (08:46)
[2017-08-30] MEDS: risperiDONE 0.5 MG TABLET PO SCH ×3 (08:47→17:39)
[2017-08-30] MEDS: BENZTROPINE MESYLATE 0.5 MG TABLET PO SCH ×3 (08:47→20:00)
[2017-08-30] MEDS: DOCUSATE SODIUM 100 MG CAPSULE PO SCH ×2 (08:47→20:00)
[2017-08-30] MEDS: MIRALAX 17 GM POWD.PACK PO PRN (08:47)
[2017-08-30] MEDS: DIVALPROEX SPRINKLE 125 MG CAP.SPRINK PO SCH ×4 (08:47→20:28)
[2017-08-30] MEDS: AMLODIPINE 5 MG TABLET PO SCH (08:48)
[2017-08-30] MEDS: METOPROLOL TARTRATE 25 MG TABLET PO SCH ×2 (08:48→20:01)
[2017-08-30 15:00] VITALS: BP 148/70
[2017-08-30] MEDS: MELATONIN 3 MG TABLET PO SCH (20:07)
[2017-08-30] MEDS: ATORVASTATIN 20 MG TABLET PO SCH (20:29)
[2017-08-30 20:58] VITALS: BP 145/66
[2017-08-31] MEDS: LEVOTHYROXINE SODIUM 88 MCG TABLET PO SCH (06:29)
[2017-08-31 08:00] VITALS: BP 144/69
[2017-08-31] MEDS: BENZTROPINE MESYLATE 0.5 MG TABLET PO SCH ×3 (08:15→20:41)
[2017-08-31] MEDS: DOCUSATE SODIUM 100 MG CAPSULE PO SCH ×2 (08:16→20:41)
[2017-08-31] MEDS: risperiDONE 0.5 MG TABLET PO SCH ×3 (08:16→17:11)
[2017-08-31] MEDS: DIVALPROEX SPRINKLE 125 MG CAP.SPRINK PO SCH ×4 (08:16→20:41)
[2017-08-31] MEDS: ASPIRIN EC 81 MG TABLET.DR PO SCH (08:16)
[2017-08-31] MEDS: AMLODIPINE 5 MG TABLET PO SCH (08:17)
[2017-08-31] MEDS: METOPROLOL TARTRATE 25 MG TABLET PO SCH ×2 (08:17→20:42)
[2017-08-31] MEDS ORDERED: CLONIDINE TTS 2 PATCH TD SCH (09:00)
--- NOTE | 2017-08-31 12:00 | NUR ---
DR QUIGLEY HERE TO SEE PATIENT AND AWARE THAT PATIENT TAKES HER MEDICATIONS BUT CARING FOR HER SUCH DIAPER /POSITION CHANGES HAS BEEN VERY DIFFICULT DUE TO PATIENT BEING SO UNCOOPERATIVE AND AGGRESSIVE AND STATED THAT SHE WILL MAKE SOME MEDICATIONS CHANGES.
--- NOTE | 2017-08-31 17:00 | NUR ---
PATIENT CONTINUES TO BE COMPLIANT WITH MEDICATIONS CRUSHED IN APPLE SAUCE BUT GET AGGRESSIVE SCRATCHES DURING CARE.
[2017-08-31 20:30] VITALS: BP 116/59
[2017-08-31] MEDS: ATORVASTATIN 20 MG TABLET PO SCH (20:41)
[2017-08-31] MEDS: MELATONIN 3 MG TABLET PO SCH (20:42)
--- NOTE | 2017-08-31 22:00 | NUR ---
received to care, up in diana chair, confused, but pleasant upon approach. compliant with medications and staff direction. as of 2199, she appears to be asleep, in bed. no distress noted. will continue to monitor closely.
[2017-09-01] MEDS: LEVOTHYROXINE SODIUM 88 MCG TABLET PO SCH (06:55)
[2017-09-01 07:30] VITALS: BP 112/60
[2017-09-01] MEDS: ASPIRIN EC 81 MG TABLET.DR PO SCH (08:52)
[2017-09-01] MEDS: DOCUSATE SODIUM 100 MG CAPSULE PO SCH ×2 (08:53→20:23)
[2017-09-01] MEDS: DIVALPROEX SPRINKLE 125 MG CAP.SPRINK PO SCH ×4 (08:53→20:22)
[2017-09-01] MEDS: risperiDONE 0.5 MG TABLET PO SCH ×2 (08:54→13:57)
[2017-09-01] MEDS: BENZTROPINE MESYLATE 0.5 MG TABLET PO SCH ×3 (08:54→20:22)
[2017-09-01] MEDS: AMLODIPINE 5 MG TABLET PO SCH (08:55)
[2017-09-01] MEDS: METOPROLOL TARTRATE 25 MG TABLET PO SCH ×2 (08:55→20:23)
--- NOTE | 2017-09-01 14:36 | NUR ---
DR QUIGLEY HERE TO SEE PATIENT WITH NEW ORDERS AND NOTED.
[2017-09-01 15:00] VITALS: BP 130/50
[2017-09-01] MEDS: risperiDONE 0.25 MG TABLET PO SCH ×2 (17:04→20:22)
[2017-09-01] MEDS ORDERED: risperiDONE 0.5 MG TABLET PO SCH ×2 (18:00)
--- NOTE | 2017-09-01 18:00 | NUR ---
APPETITE CONTINUE TO BE GOOD COMPLIANT WITH MEDICATIONS CONFUSED AND DISORIENTED MADE COMFORTABLE.WILL CONTINUE TO OBSERVE.
[2017-09-01 20:00] VITALS: BP 116/62
[2017-09-01] MEDS: ATORVASTATIN 20 MG TABLET PO SCH (20:22)
[2017-09-01] MEDS: MELATONIN 3 MG TABLET PO SCH (20:24)
[2017-09-02] MEDS: LORAZEPAM 0.5 MG TABLET PO PRN (05:31)
--- NOTE | 2017-09-02 05:31 | NUR ---
PRN ativan given at this time, for agitation and combativeness, during AM care.
[2017-09-02] MEDS: LEVOTHYROXINE SODIUM 88 MCG TABLET PO SCH (06:17)
--- NOTE | 2017-09-02 06:28 | NUR ---
appears calmer, now. assisted with am care, and shower. slept 8.5 hours, total. no distress noted.
[2017-09-02 07:30] VITALS: BP 142/79
[2017-09-02 08:08] LABS: BASOPHILS # (AUTO) 0.1 K/uL (0.0-8.0); BASOPHILS % (AUTO) 0.7 % (0.0-2.0); EOSINOPHILS # (AUTO) 0.1 K/uL (0.0-0.7); EOSINOPHILS % (AUTO) 1.4 % (0.0-7.0); HEMATOCRIT 33.4 % (31.2-41.9); HEMOGLOBIN 11.1 g/dL (10.9-14.3); LYMPHOCYTES # (AUTO) 1.4 K/uL (20.0-40.0); LYMPHOCYTES % (AUTO) 17.1 % (20.5-51.5); MEAN CORPUSCULAR HEMOGLOBIN 33.2 uug (24.7-32.8); MEAN CORPUSCULAR HGB CONC 33 g/dL (32.3-35.6); MEAN CORPUSCULAR VOLUME 100.1 fL (75.5-95.3); MONOCYTES # (AUTO) 0.7 K/uL (2.0-10.0); MONOCYTES % (AUTO) 8.3 % (0.0-11.0); NEUTROPHILS # (AUTO) 6.1 K/uL (1.8-8.9); NEUTROPHILS % (AUTO) 72.5 % (38.5-71.5); PLATELET COUNT (AUTO) 224 K/uL (179-408); RED BLOOD CELL COUNT(AUTO) 3.34 MIL/uL (3.63-4.92); WHITE BLOOD COUNT (AUTO) 8.4 K/uL (3.8-11.8)
[2017-09-02] MEDS: BENZTROPINE MESYLATE 0.5 MG TABLET PO SCH ×3 (09:20→20:10)
[2017-09-02] MEDS: risperiDONE 0.25 MG TABLET PO SCH ×4 (09:20→20:07)
[2017-09-02] MEDS: AMLODIPINE 5 MG TABLET PO SCH (09:20)
[2017-09-02] MEDS: DIVALPROEX SPRINKLE 125 MG CAP.SPRINK PO SCH ×4 (09:20→20:07)
[2017-09-02] MEDS: ASPIRIN EC 81 MG TABLET.DR PO SCH (09:20)
[2017-09-02] MEDS: DOCUSATE SODIUM 100 MG CAPSULE PO SCH ×2 (09:21→20:07)
[2017-09-02] MEDS: METOPROLOL TARTRATE 25 MG TABLET PO SCH ×2 (09:21→20:08)
[2017-09-02 11:17] LABS: ALANINE AMINOTRANSFERASE 20 U/L (14-59); ALKALINE PHOSPHATASE 90 U/L (50-136); ASPARTATE AMINOTRANSFERASE 22 U/L (15-37); BILIRUBIN,TOTAL 0.4 mg/dL (0.2-1.0); CARBON DIOXIDE 30 mmol/L (21-32); CHLORIDE 105 mmol/L (98-107); CREATININE 1.3 mg/dL (0.6-1.3); GLUCOSE 92 mg/dL (74-106); MAGNESIUM 2.3 mg/dL (1.8-2.4); POTASSIUM 4.1 mmol/L (3.5-5.1); TOTAL PROTEIN, SERUM 7.3 g/dL (6.4-8.2); UREA NITROGEN, BLOOD 47 mg/dL (7-18); VALPROIC ACID 67 ug/mL (50-100)
--- NOTE | 2017-09-02 13:50 | NUR ---
Gps/Mule Spinner- Unable to administer routine 1300 meds. patient asleep at this time, will reoffer at a later time
--- NOTE | 2017-09-02 15:13 | NUR ---
Gps/Economic Geographer- Awake, restless in bed, disrobing , discouraged pt. from doing so, gets angry, agitation noted.Safety reviewed and emphasized.
[2017-09-02] MEDS: MELATONIN 3 MG TABLET PO SCH (20:07)
[2017-09-02] MEDS: ATORVASTATIN 20 MG TABLET PO SCH (20:07)
[2017-09-02 20:24] VITALS: BP 126/70
[2017-09-03] MEDS: LEVOTHYROXINE SODIUM 88 MCG TABLET PO SCH (06:54)
[2017-09-03 07:30] VITALS: BP 135/83
[2017-09-03] MEDS: BENZTROPINE MESYLATE 0.5 MG TABLET PO SCH ×3 (08:12→20:00)
[2017-09-03] MEDS: ASPIRIN EC 81 MG TABLET.DR PO SCH (08:12)
[2017-09-03] MEDS: DOCUSATE SODIUM 100 MG CAPSULE PO SCH ×2 (08:13→20:00)
[2017-09-03] MEDS: DIVALPROEX SPRINKLE 125 MG CAP.SPRINK PO SCH ×4 (08:13→20:20)
[2017-09-03] MEDS: AMLODIPINE 5 MG TABLET PO SCH (08:13)
[2017-09-03] MEDS: METOPROLOL TARTRATE 25 MG TABLET PO SCH ×2 (08:14→20:00)
[2017-09-03] MEDS: risperiDONE 0.25 MG TABLET PO SCH ×4 (08:15→20:01)
[2017-09-03 15:36] VITALS: BP 114/63
--- NOTE | 2017-09-03 17:00 | NUR ---
Gps/Systems Support Officer- Toileted 2 staff assisting, was continent of urine, good micky-care rendered. Family here to visit, wants to know patients' progress, safety continue to review , emphasized. More cooperative with staff who s providing her care this pm.
[2017-09-03] MEDS: ATORVASTATIN 20 MG TABLET PO SCH (20:00)
[2017-09-03] MEDS: MELATONIN 3 MG TABLET PO SCH (20:00)
[2017-09-03 21:16] VITALS: BP 112/67
[2017-09-04] MEDS: MIRALAX 17 GM POWD.PACK PO PRN (06:01)
[2017-09-04] MEDS: LEVOTHYROXINE SODIUM 88 MCG TABLET PO SCH (06:03)
--- NOTE | 2017-09-04 06:13 | NUR ---
Pt HAD 1 SMALL, HARD BM THIS MORNING. RN ATTEMPTED TO MANUALLY REMOVE THE ENTIRE BM WITH 4 STAFF PRESENT, BUT Pt BECAME TOO UNCONTROLLABLE AND AGGRESSIVE. Pt SHOWERED AND CLEANED, SKIN CARE PROVIDED, Z GUARD APPLIED. Pt PLACED IN CLEAN DIAPER, GOWN, AND PANTS AND PLACED IN DALLIN CHAIR. 17G MIRALAX AND CRUSHED SYNTHROID ADMINISTERED IN ORANGE JUICE AT 0601, Pt DRANK THE ENTIRE CONTENTS. Pt NOW SITTING COMFORTABLY IN HALLWAY.
[2017-09-04] MEDS: Z GUARD REMEDY PASTE 57 GM TUBE TOP PRN ×2 (06:21→16:59)
[2017-09-04 07:30] VITALS: BP 110/83
[2017-09-04] MEDS: risperiDONE 0.25 MG TABLET PO SCH ×4 (08:16→20:24)
[2017-09-04] MEDS: ASPIRIN EC 81 MG TABLET.DR PO SCH (08:16)
[2017-09-04] MEDS: AMLODIPINE 5 MG TABLET PO SCH (08:16)
[2017-09-04] MEDS: BENZTROPINE MESYLATE 0.5 MG TABLET PO SCH ×3 (08:16→20:24)
[2017-09-04] MEDS: DOCUSATE SODIUM 100 MG CAPSULE PO SCH ×2 (08:16→20:24)
[2017-09-04] MEDS: METOPROLOL TARTRATE 25 MG TABLET PO SCH ×2 (08:17→20:32)
[2017-09-04] MEDS: DIVALPROEX SPRINKLE 125 MG CAP.SPRINK PO SCH ×4 (08:17→20:24)
[2017-09-04 15:41] VITALS: BP 114/64
--- NOTE | 2017-09-04 17:30 | NUR ---
Gps/Extrusion Former- Toileted, noted more hard stools, incotinence noted, good hygiene provided, z-guard applied to coccygeal area redness, good micky-care rendered. Patient was trying to scratch staff during her care, discouraged from doing so, patient follows simple directions when instructed. Stayed up on her diana-chair, tried to feed self after set up.
[2017-09-04] MEDS: ATORVASTATIN 20 MG TABLET PO SCH (20:24)
[2017-09-04] MEDS: MELATONIN 3 MG TABLET PO SCH (20:25)
[2017-09-04 20:49] VITALS: BP 116/70
--- NOTE | 2017-09-05 00:43 | NUR ---
PATIENT RECEIVED IN DALLIN CHAIR. ALERT/ORIENTED X1 TO NAME PATIENT REMAINS CONFUSED, DISORIENTED, DISORGANIZED. PATIENT REMAINS COMBATIVE WITH CARE. PATIENT COMPLAINT WITH MEDICATION. PATIENT REQUIRES FREQUENT REDIRECTION AND PROMPTING. BED IN LOWEST POSITION, BED LOCKED, AND BED ALARM ON WHILE IN BED. NO FACIAL GRIMACING NOTED, WILL CONTINUE TO MONITOR.
[2017-09-05] MEDS: LEVOTHYROXINE SODIUM 88 MCG TABLET PO SCH (06:34)
[2017-09-05 06:52] LABS: BASOPHILS # (AUTO) 0.1 K/uL (0.0-8.0); BASOPHILS % (AUTO) 0.7 % (0.0-2.0); EOSINOPHILS # (AUTO) 0.1 K/uL (0.0-0.7); EOSINOPHILS % (AUTO) 1.9 % (0.0-7.0); HEMATOCRIT 32.2 % (31.2-41.9); HEMOGLOBIN 10.9 g/dL (10.9-14.3); LYMPHOCYTES # (AUTO) 1.6 K/uL (20.0-40.0); LYMPHOCYTES % (AUTO) 20.4 % (20.5-51.5); MEAN CORPUSCULAR HEMOGLOBIN 33.5 uug (24.7-32.8); MEAN CORPUSCULAR HGB CONC 34 g/dL (32.3-35.6); MEAN CORPUSCULAR VOLUME 99.3 fL (75.5-95.3); MONOCYTES # (AUTO) 0.8 K/uL (2.0-10.0); MONOCYTES % (AUTO) 10.3 % (0.0-11.0); NEUTROPHILS # (AUTO) 5.1 K/uL (1.8-8.9); NEUTROPHILS % (AUTO) 66.7 % (38.5-71.5); PLATELET COUNT (AUTO) 219 K/uL (179-408); RED BLOOD CELL COUNT(AUTO) 3.24 MIL/uL (3.63-4.92); WHITE BLOOD COUNT (AUTO) 7.7 K/uL (3.8-11.8)
[2017-09-05 07:14] LABS: ALANINE AMINOTRANSFERASE 24 U/L (14-59); ALKALINE PHOSPHATASE 92 U/L (50-136); ASPARTATE AMINOTRANSFERASE 19 U/L (15-37); BILIRUBIN,TOTAL 0.4 mg/dL (0.2-1.0); CARBON DIOXIDE 31 mmol/L (21-32); CHLORIDE 105 mmol/L (98-107); CREATININE 1.1 mg/dL (0.6-1.3); GLUCOSE 92 mg/dL (74-106); MAGNESIUM 2.4 mg/dL (1.8-2.4); POTASSIUM 4.7 mmol/L (3.5-5.1); TOTAL PROTEIN, SERUM 7.1 g/dL (6.4-8.2); UREA NITROGEN, BLOOD 48 mg/dL (7-18); VALPROIC ACID 69 ug/mL (50-100)
[2017-09-05 07:30] VITALS: BP 147/67
[2017-09-05] MEDS: METOPROLOL TARTRATE 25 MG TABLET PO SCH ×2 (08:55→20:22)
[2017-09-05] MEDS: DIVALPROEX SPRINKLE 125 MG CAP.SPRINK PO SCH ×4 (08:55→20:21)
[2017-09-05] MEDS: DOCUSATE SODIUM 100 MG CAPSULE PO SCH ×2 (08:55→20:21)
[2017-09-05] MEDS: risperiDONE 0.25 MG TABLET PO SCH ×4 (08:55→20:20)
[2017-09-05] MEDS: BENZTROPINE MESYLATE 0.5 MG TABLET PO SCH ×3 (08:55→20:21)
[2017-09-05] MEDS: ASPIRIN EC 81 MG TABLET.DR PO SCH (08:55)
[2017-09-05] MEDS: AMLODIPINE 5 MG TABLET PO SCH (08:55)
[2017-09-05 15:41] VITALS: BP 101/51
[2017-09-05] MEDS: MELATONIN 3 MG TABLET PO SCH (20:21)
[2017-09-05] MEDS: ATORVASTATIN 20 MG TABLET PO SCH (20:21)
[2017-09-05 20:45] VITALS: BP 145/65
[2017-09-06] MEDS: LEVOTHYROXINE SODIUM 88 MCG TABLET PO SCH (06:16)
[2017-09-06 07:30] VITALS: BP 101/52
[2017-09-06] MEDS: ASPIRIN EC 81 MG TABLET.DR PO SCH (08:19)
[2017-09-06] MEDS: DOCUSATE SODIUM 100 MG CAPSULE PO SCH (08:19)
[2017-09-06] MEDS: DIVALPROEX SPRINKLE 125 MG CAP.SPRINK PO SCH ×2 (08:20→12:43)
[2017-09-06 09:00] VITALS: BP 101/52
[2017-09-06] MEDS: METOPROLOL TARTRATE 25 MG TABLET PO SCH (09:00)
[2017-09-06] MEDS: AMLODIPINE 5 MG TABLET PO SCH (09:00)
--- NOTE | 2017-09-06 09:56 | NUR ---
DC Note: Patient will be discharged to [facility] [[address] [place] [address]; ] via ambulance at 11:30am. STAN confirmed discharge plans with Etta at [facility]. Patient's son Ferny [[phone]] is aware and agreeable to discharge plans. Patient will follow up with Dr. Osorio Rodriguez ([facility]) [ [place] [address]; ]. Per patient's son Ferny, the patient is currently looking for a new psychiatrist. STAN provided referrals for psychiatrists including Dr. James [[phone]], Dr. Stock [[phone]], and Dr. Weldon [[phone]].
[2017-09-06] MEDS: BENZTROPINE MESYLATE 0.5 MG TABLET PO SCH ×2 (10:28→12:43)
[2017-09-06] MEDS: risperiDONE 0.25 MG TABLET PO SCH ×2 (10:28→12:43)
== END 2017-09-06 13:00 | DRG 885 ==
LOC: ER 21:13 → GPS 23:02
PROVIDERS: ADMIT Psychiatry & Neurology Psychosomatic Medicine; ATTEND Internal Medicine
DX: F31.9 Bipolar disorder, unspecified (principal); N18.9 Chronic kidney disease, unspecified; N17.0 Acute kidney failure with tubular necrosis; I50.33 Acute on chronic diastolic (congestive) heart failure; E44.0 Moderate protein-calorie malnutrition; J84.10 Pulmonary fibrosis, unspecified; F03.91 Unspecified dementia, unspecified severity, with behavioral disturbance; B35.1 Tinea unguium; D53.9 Nutritional anemia, unspecified; I13.0 Hypertensive heart and chronic kidney disease with heart failure and stage 1 through stage 4 chronic kidney disease, or unspecified chronic kidney disease; M41.9 Scoliosis, unspecified; I25.10 Atherosclerotic heart disease of native coronary artery without angina pectoris; E03.9 Hypothyroidism, unspecified; I25.2 Old myocardial infarction; E78.5 Hyperlipidemia, unspecified; M20.21 Hallux rigidus, right foot; I73.9 Peripheral vascular disease, unspecified; F29 Unspecified psychosis not due to a substance or known physiological condition; M20.22 Hallux rigidus, left foot; R60.0 Localized edema; Z68.21 Body mass index [BMI] 21.0-21.9, adult; M85.80 Other specified disorders of bone density and structure, unspecified site; Z79.82 Long term (current) use of aspirin; Z79.899 Other long term (current) drug therapy; Z87.440 Personal history of urinary (tract) infections; I70.0 Atherosclerosis of aorta; E87.6 Hypokalemia; S60.222A Contusion of left hand, initial encounter; X58.XXXA Exposure to other specified factors, initial encounter; Y92.89 Other specified places as the place of occurrence of the external cause
CPT/HCPCS: 36415; 71045; 73130; 80164; 80307; 82306; 83735; 84100; 84443; 85025; 93005; 97116; 97530; A4663; G0480; G0480-TC